=== PATIENT | female | born 1945 | race American Indian/Alaskan Native ===

== ENCOUNTER 2017-03-20 19:31 | Inpatient (IN) | payer MEDICARE ==
[2017-03-20] MEDS ORDERED: NACL 0.9% 500 ML 500 ML IV ONE (19:40)
[2017-03-20] MEDS ORDERED: TYLENOL PO STA (19:40)
[2017-03-20] MEDS ORDERED: TYLENOL ONE (19:42)
[2017-03-20 20:31] LABS: Basophils % (Auto) 0.2 % (0.0-1.8); Hematocrit 34.1 % (30.3-42.9); Hemoglobin 11.2 gm/dl (10.1-14.3); Mean Corpuscular HGB Conc 33 % (30-34); Mean Corpuscular Hemoglobin 29 pg (28-32); Mean Corpuscular Volume 87 fl (79-97); Platelet Count 146 K/mm3 (140-440); Red Blood Count 3.91 M/mm3 (3.65-5.03); Red Cell Distribution Width 16.1 % (13.2-15.2)
[2017-03-20 20:41] LABS: Albumin 1.7 g/dL (3.9-5); Albumin/Globulin Ratio 0.3 %; BUN/Creatinine Ratio 3.26; Bilirubin,Total 0.6 mg/dL (0.1-1.2); Calcium 8.7 mg/dL (8.4-10.2); Potassium 4.3 mmol/L (3.6-5.0); Total Protein 7.3 g/dL (6.3-8.2)
[2017-03-20 20:42] LABS: INR 0.98 (0.87-1.13)
--- NOTE | 2017-03-20 21:10 | Emergency Department Report ---
HPI - General Chief Complaint: Abdominal Pain Time Seen by Provider: 03/20/17 20:15 - HPI HPI: This is a 71-year-old Afro-[place]anese female presents to the emergency department from home with complaint of a 24-hour history of a sore and tight abdomen with generalized discomfort. She also complains of nausea and vomiting. This all started after the patient ate at [employer] in which she ate some chicken wings. Patient felt slightly feverish but did not check her temperature. She denies any chest pain, shortness of breath, diarrhea, dysuria, vaginal bleeding or discharge. She did not take anything for symptoms prior to presentation. Patient has a past medical history of CVA, hypertension and is nightly peritoneal dialysis. Her primary care physician is a Dr. Granado and her occup therapist is Dr. Hartley. No recent travel or sick contacts at home. ED Past Medical Hx - Past Medical History Previous Medical History?: Yes Hx Hypertension: Yes Hx CVA: Yes (2008) Hx Heart Attack/AMI: No Hx Liver Disease: No Hx Renal Disease: Yes (has PD catheter) Hx Sickle Cell Disease: No Hx Arthritis: Yes (bilat knees) Hx Seizures: No Hx Asthma: No Hx COPD: No - Surgical History Past Surgical History?: Yes Hx Pacemaker: No Hx Internal Defibrillator: No Hx Breast Surgery: Yes (NIPPLE SURGERY, R MASTECTOMY 2003) - Social History Smoking Status: Never Smoker Substance Use Type: None - Medications Home Medications: Home Medications Medication Instructions Recorded Confirmed Last Taken Type Losartan [Cozaar] 100 mg PO QDAY 10/17/13 03/20/17 03/20/17 History Carvedilol [Coreg] 12.5 mg PO BID 11/25/13 03/20/17 03/20/17 History Bisacodyl [Dulcolax] 5 mg PO QWEEK 03/20/17 03/20/17 03/20/17 History Cinacalcet [Sensipar] 30 mg PO QDAY 03/20/17 03/20/17 03/20/17 History Iron,Carbonyl [Feosol] 65 mg PO QDAY 03/20/17 03/20/17 03/20/17 History NIFEdipine [Nifedipine ER] 60 mg PO QDAY 03/20/17 03/20/17 03/20/17 History Potassium Chloride [Klor-Con] 20 meq PO QDAY 03/20/17 03/20/17 03/20/17 History Sevelamer Carbonate [Renvela] 800 mg PO TIDWM 03/20/17 03/20/17 03/20/17 History Simvastatin [Zocor TAB] 40 mg PO QHS 03/20/17 03/20/17 03/20/17 History Spironolactone [Aldactone] 25 mg PO BID 03/20/17 03/20/17 03/20/17 History Vit B Comp&C/Folic Acid/Vit D3 1 each PO QDAY 03/20/17 03/20/17 03/20/17 History [Dialyvite 800 Plus D Wafer] ED Review of Systems ROS: Stated complaint: ABD PAIN Other details as noted in HPI Comment: All other systems reviewed and negative Constitutional: fever. denies: chills Eyes: denies: eye pain, eye discharge, vision change ENT: denies: ear pain, throat pain Respiratory: denies: cough, shortness of breath, wheezing Cardiovascular: denies: chest pain, palpitations Gastrointestinal: abdominal pain, nausea, vomiting Genitourinary: denies: urgency, dysuria, discharge Musculoskeletal: denies: back pain, joint swelling, arthralgia Skin: denies: rash, lesions Neurological: denies: headache, weakness, paresthesias Physical Exam - Physical Exam Vital Signs: Vital Signs 03/20/17 03/20/17 03/20/17 19:20 19:30 19:33 Temperature 101.2 F H Pulse Rate 116 H 114 H 116 H Respiratory 24 21 16 Rate Blood Pressure 164/88 164/88 O2 Sat by Pulse 95 98 96 Oximetry 03/20/17 03/20/17 03/20/17 19:40 19:50 20:00 Temperature Pulse Rate 117 H 112 H 111 H Respiratory 22 19 28 H Rate Blood Pressure 150/81 O2 Sat by Pulse 97 99 98 Oximetry Physical Exam: GENERAL: The patient is well-developed well-nourished. HEENT: Normocephalic. Atraumatic. Extraocular motions are intact. Patient has moist mucous membranes. Pupils equal reactive to light bilaterally. NECK: Supple. Trachea is midline. CHEST/LUNGS: Clear to auscultation. There is no respiratory distress noted. HEART/CARDIOVASCULAR: Regular. There is no tachycardia. There is no gallop rub or murmur. ABDOMEN: Abdomen is soft. There is generalized tenderness to palpation of the abdomen. No guarding or rebound tenderness. Patient has normal bowel sounds. There is no abdominal distention. There is a peritoneal dialysis catheter palpable in the left lower quadrant. SKIN: Skin is warm and dry. NEURO: The patient is awake, alert. The patient is cooperative. The patient has no focal neurologic deficits. The patient has normal speech. MUSCULOSKELETAL: There is no tenderness or deformity. There is no limitation range of motion. There is no evidence of acute injury. ED Course Vital Signs 03/20/17 03/20/17 03/20/17 19:20 19:30 19:33 Temperature 101.2 F H Pulse Rate 116 H 114 H 116 H Respiratory 24 21 16 Rate Blood Pressure 164/88 164/88 O2 Sat by Pulse 95 98 96 Oximetry 03/20/17 03/20/17 03/20/17 19:40 19:50 20:00 Temperature Pulse Rate 117 H 112 H 111 H Respiratory 22 19 28 H Rate Blood Pressure 150/81 O2 Sat by Pulse 97 99 98 Oximetry - Consultations Consultation #1: I spoke with the general surgeon on-call who has agreed to see the patient has a consult. He does not feel that the pneumoperitoneum that is periportal is anything but iatrogenic from the peritoneal dialysis but will graciously see the patient on the floor. 03/20/17 23:52 Consultation #2: I spoke with Dr. Sykes, occup therapist, who will do peritoneal dialysis for the patient in the morning. He recommends sending off peritoneal fluid for a cell count and culture. 03/20/17 23:52 Consultation #3: I spoke with Dr. Rachid Oreilly, gastroenterology, who says that it is possible for SBP and a non-cirrhotic patient and if I have concern that he recommends Levaquin by mouth and this renally insufficient patient. 03/20/17 23:53 ED Medical Decision Making - Lab Data Result diagrams: 03/20/17 19:56 03/20/17 19:56 - EKG Data -: EKG Interpreted by Me EKG shows normal: sinus rhythm, axis (LAD), intervals, QRS complexes, ST-T waves Rate: tachycardia (116 bpm) - EKG Data When compared to previous EKG there are: previous EKG unavailable Interpretation: other (sinus tachycardia, left axis deviation, no ST elevation MN) - Radiology Data Radiology results: report reviewed CT of the abdomen and pelvis without contrast shows moderate volume of abdominal and pelvic ascites with pelvic peritoneal dialysis catheter in place. A small amount of perihepatic pneumoperitoneum is present which may be allergenic or secondary to nonvisualized hollow viscus rupture. Suggested bowel wall thickening involving the jejunum may be secondary to ascites or of primary gastrointestinal etiology such as enteritis. Small right pleural effusion. - Medical Decision Making 71-year-old female presents with a one-day history of nausea, vomiting and generalized abdominal pain. Labs are mostly unremarkable but the patient does present with fever and tachycardia. She has general tenderness to palpation of the abdomen. EKG shows a moderate amount of ascites and some periportal pneumoperitoneum that could be from her dialysis but cannot completely exclude hollow viscus injury/perforation. This reason the patient will be admitted to hospital for evaluation by general surgery, peritoneal dialysis through nephrology, and testing of the peritoneal fluid to rule out SBP. Patient accepted for admission by the hospitalist, Dr. Carmona. - Differential Diagnosis gastroenteritis, SBP, diverticulitis Critical Care Time: No Critical care attestation.: If time is entered above; I have spent that time in minutes in the direct care of this critically ill patient, excluding procedure time. ED Disposition Clinical Impression: ESRD (end stage renal disease), Generalized abdominal pain Anemia Qualifiers: Anemia type: unspecified type Qualified Code(s): D64.9 - Anemia, unspecified Fever Qualifiers: Fever type: unspecified Qualified Code(s): R50.9 - Fever, unspecified Disposition: 09 OP ADMIT IP TO THIS HOSP Is pt being admited?: Yes Condition: Stable Instructions: Abdominal Pain (ED) Referrals: PRIMARY CARE, [Primary Care Provider] - 3-5 Days Time of Disposition: 23:56
--- NOTE | 2017-03-20 22:41 | Cat Scan Report ---
FINAL REPORT EXAM: CT ABDOMEN PELVIS WO CON HISTORY: Abd pain; TECHNIQUE: CT images obtained through the Abdomen and Pelvis without contrast. Transaxial,coronal and sagittal reformats are provided. PRIORS: None. FINDINGS: Imaged intrathoracic contents are remarkable for right middle lobe and lingular cystic bronchiectasis. Suggested sequela COPD. Lower lung tree-in-bud nodularity. Cardiomegaly and coronary artery disease. Moderate volume of abdominal ascites. Perihepatic pneumoperitoneum. Peritoneal dialysis catheter is coiled within the pelvis. A pelvic floor device is present. Diminutive kidneys with multiple cysts as well as cortical irregularity/scarring and mild perinephric stranding and edema. No nephrolithiasis or hydroureteronephrosis. Decompressed urinary bladder without stone. Mild hepatic border nodularity. Cholelithiasis. Punctate old granulomas in the spleen, which is otherwise unremarkable. Thickening of the adrenal glands without focal nodularity. Pancreas demonstrates an unremarkable noncontrast appearance. Suggested wall thickening involving the jejunum best demonstrated on axial series 3, images 65-72. Fluid is seen throughout much of the colon. Normal appendix. Diverticulosis. Mild diffuse superficial soft tissue edema. No acute or aggressive appearing skeletal finding. Tortuous normal caliber aorta with densely scattered atherosclerotic calcification. IMPRESSION: Moderate volume of abdominal and pelvic ascites with pelvic peritoneal dialysis catheter in place. A small amount of perihepatic pneumoperitoneum is present, which may be iatrogenic or secondary to nonvisualized hollow viscus rupture. Consider surgical consultation as clinically warranted. Suggested bowel wall thickening involving the jejunum may be secondary to ascites or of primary gastrointestinal etiology such is enteritis. Small right pleural effusion. Cardiomegaly and coronary artery disease. Dr. Amin discussed findings with Dr. Whipple at [address] [employer] following the examination.
[2017-03-20 23:08] LABS: Bilirubin,Urine NEG (Negative); Blood,Urine LG (Negative); Ketones,Urine NEG (Negative); Leukocyte Esterase,Urine NEG (Negative); Mucus,Urine FEW /HPF; Nitrite,Urine NEG (Negative); Urobilinogen,Urine < 2.0 mg/dL (<2.0)
[2017-03-20 23:16] LABS: Protein,Urine >500 mg/dL (Negative); RBC,Urine > 182.0 /HPF (0.0-6.0)
[2017-03-20] MEDS ORDERED: LEVAQUIN PO ONE (23:19)
--- NOTE | 2017-03-20 23:52 | History and Physical Report ---
History of Present Illness Date of examination: 03/20/17 History of present illness: 71 year old woman with history of end-stage renal disease on peritoneal dialysis , Hypertension, History of CVA comes emergency room with complaints of diffuse abdominal soreness, fever. States she had an episode of nausea and vomiting yesterday. Admits to dysuria Review Of Systems: Constitutional: no chills, weight loss Ears, eyes, nose, mouth and throat: no nasal congestion, no nasal discharge, no sinus pressure, blurry vision, diplopia Neck: No neck pain or rigidity. Cardiovascular: chest pain, orthopnea, palpitations Respiratory: No shortness of breath, cough Gastrointestinal: abdominal pain, hematochezia Genitourinary : no frequency , hematuria Musculoskeletal: no joint swelling or muscle ache Integumentary: no rash, no pruritis Neurological: no parathesias, focal weakness Endocrine: no cold or heat intolerance, no polyuria or polydipsia Hematologic/Lymphatic: no easy bruising, no easy bleeding, no gland swelling Allergic/Immunologic: no urticaria, no angioedema. Past Medical History: end-stage renal disease, hypertension, CVA Past Surgical History: mastectomy,tubal ligation Social history: Denies alcohol, drug, tobacco use Family history:Hypertension Medications and Allergies Allergies Allergy/AdvReac Type Severity Reaction Status Date / Time Sulfa (Sulfonamide AdvReac Itching Verified 10/17/13 10:15 Antibiotics) Home Medications Medication Instructions Recorded Confirmed Last Taken Type Losartan [Cozaar] 100 mg PO QDAY 10/17/13 03/20/17 03/20/17 History Carvedilol [Coreg] 12.5 mg PO BID 11/25/13 03/20/17 03/20/17 History Bisacodyl [Dulcolax] 5 mg PO QWEEK 03/20/17 03/20/17 03/20/17 History Cinacalcet [Sensipar] 30 mg PO QDAY 03/20/17 03/20/17 03/20/17 History Iron,Carbonyl [Feosol] 65 mg PO QDAY 03/20/17 03/20/17 03/20/17 History NIFEdipine [Nifedipine ER] 60 mg PO QDAY 03/20/17 03/20/17 03/20/17 History Potassium Chloride [Klor-Con] 20 meq PO QDAY 0803/20/17 03/20/17 History Sevelamer Carbonate [Renvela] 800 mg PO TIDWM 03/20/17 03/20/17 03/20/17 History Simvastatin [Zocor TAB] 40 mg PO QHS 03/20/17 03/20/17 03/20/17 History Spironolactone [Aldactone] 25 mg PO BID 03/20/17 03/20/17 03/20/17 History Vit B Comp&C/Folic Acid/Vit D3 1 each PO QDAY 03/20/17 03/20/17 03/20/17 History [Dialyvite 800 Plus D Wafer] Exam - Physical Exam Narrative exam: Gen. appearance: Patient lying in bed, no apparent distress HEENT: Normocephalic, atraumatic, pupils equally round and reactive to light, extraocular movement intact, and no sclericterus,. No JVD or thyromegaly or nodule,neck supple, no carotid bruit ,mucous membranes moist, no exudate or erythema Heart: S1, S2, regular rate and rhythm Lungs: Clear to auscultation bilaterally, breathing comfortable Abdomen: Positive bowel sounds, tender all over, nondistended, no organomegaly Extremity: No edema, cyanosis, clubbing Skin: No rash, nodules, warm, dry Neuro: Oriented 3, cranial nerves II-12 intact, speech is fluent, motor and sensory intact - Constitutional Vitals: Temp Pulse Resp BP Pulse Ox 99.0 F 100 H 21 144/78 99 03/20/17 22:18 03/20/17 23:30 03/20/17 23:30 03/20/17 23:30 03/20/17 23:30 Results - Labs CBC & Chem 7: 03/22/17 03:47 03/22/17 03:47 Labs: Abnormal lab results 03/20/17 03/20/17 03/20/17 Range/Units 19:56 19:56 19:56 WBC 3.0 L (4.5-11.0) K/mm3 RDW 16.1 H (13.2-15.2) % Lymph % (Auto) 9.2 L (13.4-35.0) % Lymph # 0.3 L (1.2-5.4) K/mm3 Seg Neutrophils % 83.3 H (40.0-70.0) % VBG pH 7.450 H (7.320-7.420) Sodium 131 L (137-145) mmol/L Chloride 90.0 L (98-107) mmol/L BUN 31 H (7-17) mg/dL Creatinine 9.5 H (0.7-1.2) mg/dL Albumin 1.7 L (3.9-5) g/dL Urine WBC (Auto) (0.0-6.0) /HPF 03/20/17 Range/Units 22:08 WBC (4.5-11.0) K/mm3 RDW (13.2-15.2) % Lymph % (Auto) (13.4-35.0) % Lymph # (1.2-5.4) K/mm3 Seg Neutrophils % (40.0-70.0) % VBG pH (7.320-7.420) Sodium (137-145) mmol/L Chloride (98-107) mmol/L BUN (7-17) mg/dL Creatinine (0.7-1.2) mg/dL Albumin (3.9-5) g/dL Urine WBC (Auto) 181.0 H (0.0-6.0) /HPF - Imaging and Cardiology Chest x-ray: image reviewed CT scan - abdomen: report reviewed CT scan - pelvis: report reviewed Assessment and Plan Assessment Spontaneous bacterial peritonitis Perihepatic Pneumoperitoneum most likely iatrogenic, PD catheter End-stage renal disease on peritoneal dialysis Hypertension History of CVA Plan Admits medicine Start IV Rocephin, consult renal, surgery Continue appropriate outpatient medications, start DVT prophylaxis
[2017-03-21] MEDS ORDERED: DULCOLAX PR PRN (00:07)
[2017-03-21] MEDS ORDERED: ZOFRAN IV PRN (00:07)
[2017-03-21] MEDS ORDERED: PERCOCET 5/325 PO PRN (00:07)
--- NOTE | 2017-03-21 09:13 | XRay Report ---
AP CHEST :03/20/17 19:31:00 CLINICAL: Sepsis. COMPARISON:None. FINDINGS: Cardiomegaly and redistribution of pulmonary blood flow to the upper lobes. No airspace disease or pleural effusion. Status post right mastectomy and right axillary node dissection. Surgical clips in the right axilla. Arthritis of the right shoulder. IMPRESSION: No pneumonia. Cardiomegaly and pulmonary venous hypertension but no pulmonary edema.
[2017-03-21] MEDS: ROCEPHIN/NS 1 GM/50 ML 1 GM/50 ML BAG IV SCH (09:37)
[2017-03-21] MEDS ORDERED: LOVENOX SUB-Q SCH (10:00)
--- NOTE | 2017-03-21 11:19 | Progress Note ---
Assessment and Plan Assessment and plan: Patient is 71-year-old woman with a history of end-stage renal disease on peritoneal dialysis, hypertension, osteoarthritis and CVA who presents with abdominal pain fever nausea vomiting. Symptoms have improved. CT abdomen and pelvis without contrast reported as moderate volume of abdominal pelvic ascites with pelvic peritoneal dialysis catheter in place, small amount of perihepatic pneumoperitoneum is present, which may be neurogenic or secondary to nonvisualized hollow viscus rupture, consider surgical consultation, suggested ball while taking Xarelto involving the jejunum may be secondary to ascites or primary GI pathology such as enteritis, small right pleural effusion, cardiomegaly cardiac artery disease, Dr. Amin discussed findings with Dr. Whipple. -Sepsis due to suspected bacterial peritonitis: IV antibiotics, cultures, peritoneal fluid has been sent but patient already on antibiotics, Tylenol -End Stage renal disease on peritoneal dialysis: Consulted nephrology -Urinary tract infection versus contaminated urine -Severe protein calorie malnutrition -Pneumoperitoneum: Consult general surgery, abdominal exam is benign may be related to peritoneal catheter. -DVT prophylaxis: Subcutaneous heparin, normal to low platelet counts continue to follow repeat CBC a.m. Full code Disposition: Continue inpatient care History Interval history: Patient seen and examined. Follow up on current diagnosis/abdominal pain and swelling which have improved. Overnight uneventful. No cp, sob, n/v or severe headaches. Imaging, old records, testing, labs, nursing notes reviewed. Daughter Darline is at bedside Hospitalist Physical - Physical exam Narrative exam: GEN: Thin frail BMI 19, NAD, AWAKE, ALERT, ORIENTATED x 3 HEENT: NCAT, PERRL, EOMI, OP CLEAR NECK: SUPPLE, NO THYROMEGALY, NO JVD, NO LAD CVS: RRR, NORMAL S1S2 LUNGS/CHEST: CTA B, NORMAL CHEST EXPANSION B, GOOD AIR ENTRY B ABD: SOFT, nontender GBS, NO REBOUND OR GUARDING, left quadrant peritoneal catheter EXT/SKIN: NO SIGNIFICANT EDEMA OR RASH MSK: FROM X 4 EXTREMITIES NEURO: CN 2-12 GROSSLY INTACT, NO NEW FOCAL DEFICITS PSY: CALM - Constitutional Vitals: Temp Pulse Resp BP Pulse Ox 99.4 F 100 H 20 149/85 95 03/21/17 09:20 03/21/17 09:20 03/21/17 09:20 03/21/17 09:20 03/21/17 07:16 Results - Labs CBC & Chem 7: 03/20/17 19:56 03/20/17 19:56 Labs: Laboratory Last Values WBC 3.0 K/mm3 (4.5-11.0) L 03/20/17 19:56 RBC 3.91 M/mm3 (3.65-5.03) 03/20/17 19:56 Hgb 11.2 gm/dl (10.1-14.3) 03/20/17 19:56 Hct 34.1 % (30.3-42.9) 03/20/17 19:56 MCV 87 fl (79-97) 03/20/17 19:56 MCH 29 pg (28-32) 03/20/17 19:56 MCHC 33 % (30-34) 03/20/17 19:56 RDW 16.1 % (13.2-15.2) H 03/20/17 19:56 Plt Count 146 K/mm3 (140-440) 03/20/17 19:56 Lymph % (Auto) 9.2 % (13.4-35.0) L 03/20/17 19:56 [place] % (Auto) 7.3 % (0.0-7.3) 03/20/17 19:56 Eos % (Auto) 0.0 % (0.0-4.3) 03/20/17 19:56 Baso % (Auto) 0.2 % (0.0-1.8) 03/20/17 19:56 Lymph # 0.3 K/mm3 (1.2-5.4) L 03/20/17 19:56 [place] # 0.2 K/mm3 (0.0-0.8) 03/20/17 19:56 Eos # 0.0 K/mm3 (0.0-0.4) 03/20/17 19:56 Baso # 0.0 K/mm3 (0.0-0.1) 03/20/17 19:56 Seg Neutrophils % 83.3 % (40.0-70.0) H 03/20/17 19:56 Seg Neutrophils # 2.5 K/mm3 (1.8-7.7) 03/20/17 19:56 PT 13.5 Sec. (12.2-14.9) 03/20/17 19:56 INR 0.98 (0.87-1.13) 03/20/17 19:56 VBG pH 7.450 (7.320-7.420) H 03/20/17 19:56 Sodium 131 mmol/L (137-145) L 03/20/17 19:56 Potassium 4.3 mmol/L (3.6-5.0) 03/20/17 19:56 Chloride 90.0 mmol/L (98-107) L 03/20/17 19:56 Carbon Dioxide 29 mmol/L (22-30) 03/20/17 19:56 Anion Gap 16 mmol/L 03/20/17 19:56 BUN 31 mg/dL (7-17) H 03/20/17 19:56 Creatinine 9.5 mg/dL (0.7-1.2) H 03/20/17 19:56 Estimated GFR 5 ml/min 03/20/17 19:56 BUN/Creatinine Ratio 3.26 % 03/20/17 19:56 Glucose 96 mg/dL (65-100) 03/20/17 19:56 Lactic Acid 1.60 mmol/L (0.7-2.0) 03/20/17 22:43 Calcium 8.7 mg/dL (8.4-10.2) 03/20/17 19:56 Total Bilirubin 0.60 mg/dL (0.1-1.2) 03/20/17 19:56 AST 31 units/L (5-40) 03/20/17 19:56 ALT 27 units/L (7-56) 03/20/17 19:56 Alkaline Phosphatase 65 units/L (35-129) 03/20/17 19:56 Total Protein 7.3 g/dL (6.3-8.2) 03/20/17 19:56 Albumin 1.7 g/dL (3.9-5) L 03/20/17 19:56 Albumin/Globulin Ratio 0.3 % 03/20/17 19:56 Lipase 28 units/L (13-60) 03/20/17 19:56 Urine Color Melissa (Yellow) 03/20/17 22:08 Urine Turbidity Slightly-cloudy (Clear) 03/20/17 22:08 Urine pH 7.0 (5.0-7.0) 03/20/17 22:08 Ur Specific [place] 1.025 (1.003-1.030) 03/20/17 22:08 Urine Protein >500 mg/dL (Negative) 03/20/17 22:08 Urine Glucose (UA) Neg mg/dL (Negative) 03/20/17 22:08 Urine Ketones Neg mg/dL (Negative) 03/20/17 22:08 Urine Blood Lg (Negative) 03/20/17 22:08 Urine Nitrite Neg (Negative) 03/20/17 22:08 Urine Bilirubin Neg (Negative) 03/20/17 22:08 Urine Urobilinogen < 2.0 mg/dL (<2.0) 03/20/17 22:08 Ur Leukocyte Esterase Neg (Negative) 03/20/17 22:08 Urine WBC (Auto) 181.0 /HPF (0.0-6.0) H 03/20/17 22:08 Urine RBC (Auto) > 182.0 /HPF (0.0-6.0) 03/20/17 22:08 U Epithel Cells (Auto) 3.0 /HPF (0-13.0) 03/20/17 22:08 Urine Mucus Few /HPF 03/20/17 22:08
--- NOTE | 2017-03-21 13:23 | Consultation ---
History of Present Illness - Reason for Consult Consult date: 03/21/17 end stage renal disease Requesting physician: CAROL ANN ROMEO - History of Present Illness 71 year old woman with history of end-stage renal disease on peritoneal dialysis , Hypertension, History of CVA comes emergency room with complaints of diffuse abdominal soreness, fever. States she had an episode of nausea and vomiting yesterday. Admits to dysuria. States that her PD fluid has been clear. She has had some diarrhea as well. Past History Past Medical History: ESRD, hypertension Past Surgical History: Other (history of PD catheter placement) Social history: no significant social history Family history: no significant family history Medications and Allergies Allergies Allergy/AdvReac Type Severity Reaction Status Date / Time Sulfa (Sulfonamide AdvReac Itching Verified 10/17/13 10:15 Antibiotics) Home Medications Medication Instructions Recorded Confirmed Last Taken Type Losartan [Cozaar] 100 mg PO QDAY 10/17/13 03/20/17 03/20/17 History Carvedilol [Coreg] 12.5 mg PO BID 11/25/13 03/20/17 03/20/17 History Bisacodyl [Dulcolax] 5 mg PO QWEEK 03/20/17 03/20/17 03/20/17 History Cinacalcet [Sensipar] 30 mg PO QDAY 03/20/17 03/20/17 03/20/17 History Iron,Carbonyl [Feosol] 65 mg PO QDAY 03/20/17 03/20/17 03/20/17 History NIFEdipine [Nifedipine ER] 60 mg PO QDAY 03/20/17 03/20/17 03/20/17 History Potassium Chloride [Klor-Con] 20 meq PO QDAY 03/20/17 03/20/17 03/20/17 History Sevelamer Carbonate [Renvela] 800 mg PO TIDWM 03/20/17 03/20/17 03/20/17 History Simvastatin [Zocor TAB] 40 mg PO QHS 03/20/17 03/20/17 03/20/17 History Spironolactone [Aldactone] 25 mg PO BID 03/20/17 03/20/17 03/20/17 History Vit B Comp&C/Folic Acid/Vit D3 1 each PO QDAY 03/20/17 03/20/17 03/20/17 History [Dialyvite 800 Plus D Wafer] Active Meds: Active Medications Acetaminophen (Tylenol) 650 mg PO Q4H PRN PRN Reason: Pain MILD(1-3)/Fever >100.5/AGUILAR Bisacodyl (Dulcolax) 10 mg MT QDAY PRN PRN Reason: Constipation unrelieved by MOM Heparin Sodium (Porcine) (Heparin) 5,000 unit SUB-Q Q12H HERNANDEZ Ceftriaxone Sodium (Rocephin/Ns 1 Gm/50 Ml) 1 gm in 50 mls @ 100 mls/hr IV Q24HR HERNANDEZ PRN Reason: Protocol Last Admin: 03/21/17 09:37 Dose: 100 mls/hr Ondansetron HCl (Zofran) 4 mg IV Q8H PRN PRN Reason: N/V unrelieved by Reglan Oxycodone/Acetaminophen (Percocet 5/325) 1 tab PO Q6H PRN PRN Reason: Pain, Moderate (4-6) Last Admin: 03/21/17 02:10 Dose: 1 tab Peritoneal Dialysis Solution (Dianeal Low Calcium W/1.5% Dextrose) 2,000 ml IP Q6HR [facility] Review of Systems All systems: negative (except as noted above) Exam - Vital Signs Vital signs: Vital Signs Pulse Resp Pulse Ox 116 H 24 95 03/20/17 19:20 03/20/17 19:20 03/20/17 19:20 - General Appearance General appearance: well-developed, well-nourished, appears stated age EENT: PERRL, mucous membranes moist Neck: Present: neck supple, trachea midline. Absent: JVD/HJR, Masses Respiratory: Clear to Ascultation Heart: regular, normal heart rate, S1S2, no murmurs Gastrointestinal: Present: normal, tenderness (mild diffuse tenderness), guarding (no rebound or guarding), other (PD catheter in left lower quadrant area) Integumentary: no rash, other (no peripheral edema) Results - Lab Results 03/20/17 19:56 03/20/17 19:56 Most recent lab results Calcium 8.7 mg/dL (8.4-10.2) 03/20/17 19:56 Assessment and Plan Impression * End-stage renal disease on maintenance peritoneal dialysis * Abdominal pain. Rule out peritonitis * Hypertension * Anemia secondary to ESRD * History of CVA * UTI Recommendations * Agree with empiric intravenous antibiotics * Shall check a PD fluid for cell count and culture * Free intraperitoneal air most likely secondary to her PD. I do not suspect a surgical abdomen * Shall resume her peritoneal dialysis * Adjust diet and meds for ESRD state * Avoid nephrotoxins * Thank you very much for the consultation. Shall follow along with you
[2017-03-21] MEDS: DIANEAL LOW CALCIUM W/1.5% DEXTROSE IP SCH ×3 (13:37→23:46)
[2017-03-21] MEDS: TYLENOL PO PRN (15:07)
[2017-03-22] MEDS: TYLENOL PO PRN (00:46)
[2017-03-22 04:41] LABS: BUN/Creatinine Ratio 4.5; Calcium 8.5 mg/dL (8.4-10.2); Chloride 87.3 mmol/L (98-107); Potassium 4.5 mmol/L (3.6-5.0)
[2017-03-22 04:52] LABS: Hematocrit 33.7 % (30.3-42.9); Hemoglobin 11.2 gm/dl (10.1-14.3); Mean Corpuscular HGB Conc 33 % (30-34); Mean Corpuscular Hemoglobin 29 pg (28-32); Mean Corpuscular Volume 87 fl (79-97); Platelet Count 172 K/mm3 (140-440); Red Blood Count 3.87 M/mm3 (3.65-5.03); Red Cell Distribution Width 16.3 % (13.2-15.2); White Blood Count 5.1 K/mm3 (4.5-11.0)
[2017-03-22 05:42] LABS: Anisocytosis 1+; Basophils % (Manual) 0 % (0.0-1.8); Blastocytes % (Manual) 0 %; Diff Status Complete; Eosinophils % (Manual) 0 % (0.0-4.3); Hypochromasia 1+; Platelet Estimate Consistent w Auto
[2017-03-22] MEDS: DIANEAL LOW CALCIUM W/1.5% DEXTROSE IP SCH ×3 (06:00→18:43)
--- NOTE | 2017-03-22 09:32 | Progress Note ---
Assessment and Plan Assessment and plan: Patient is 71-year-old woman with a history of end-stage renal disease on peritoneal dialysis, hypertension, osteoarthritis and CVA who presents with abdominal pain fever nausea vomiting. Symptoms have improved. CT abdomen and pelvis without contrast reported as moderate volume of abdominal pelvic ascites with pelvic peritoneal dialysis catheter in place, small amount of perihepatic pneumoperitoneum is present, which may be neurogenic or secondary to nonvisualized hollow viscus rupture, consider surgical consultation, suggested ball while taking Xarelto involving the jejunum may be secondary to ascites or primary GI pathology such as enteritis, small right pleural effusion, cardiomegaly cardiac artery disease, Dr. Amin discussed findings with Dr. Whipple. 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 Sykes, -DVT prophylaxis: Subcutaneous heparin, normal to low platelet counts continue to follow repeat CBC a.m. -Hyponatremia due to renal disease: nephrology to manage Full code Disposition: Continue inpatient care Pending results: Abd u/s Peritoneal fluid culture History Interval history: Patient seen and examined. Follow up on current diagnosis/abdominal pain and swelling which have improved but still present. Overnight uneventful. No cp, sob , n/v or severe headaches. Imaging, old records, testing, labs, nursing notes reviewed. Daughter Darline is not at bedside today Hospitalist Physical - Physical exam Narrative exam: GEN: Thin frail BMI 19, NAD, AWAKE, ALERT, ORIENTATED x 3 HEENT: NCAT, PERRL, EOMI, OP CLEAR NECK: SUPPLE, NO THYROMEGALY, NO JVD, NO LAD CVS: RRR, NORMAL S1S2 LUNGS/CHEST: CTA B, NORMAL CHEST EXPANSION B, GOOD AIR ENTRY B ABD: SOFT, tender diffusely, GBS, NO REBOUND OR GUARDING, left quadrant peritoneal catheter EXT/SKIN: NO SIGNIFICANT EDEMA OR RASH MSK: FROM X 4 EXTREMITIES NEURO: CN 2-12 GROSSLY INTACT, NO NEW FOCAL DEFICITS PSY: CALM - Constitutional Vitals: Temp Pulse Resp BP Pulse Ox 98.6 F 95 H 20 129/78 95 03/21/17 21:47 03/21/17 22:15 03/22/17 01:46 03/21/17 21:47 03/21/17 22:15 Results - Labs CBC & Chem 7: 03/22/17 03:47 03/22/17 03:47 Labs: Laboratory Last Values WBC 5.1 K/mm3 (4.5-11.0) 03/22/17 03:47 RBC 3.87 M/mm3 (3.65-5.03) 03/22/17 03:47 Hgb 11.2 gm/dl (10.1-14.3) 03/22/17 03:47 Hct 33.7 % (30.3-42.9) 03/22/17 03:47 MCV 87 fl (79-97) 03/22/17 03:47 MCH 29 pg (28-32) 03/22/17 03:47 MCHC 33 % (30-34) 03/22/17 03:47 RDW 16.3 % (13.2-15.2) H 03/22/17 03:47 Plt Count 172 K/mm3 (140-440) 03/22/17 03:47 Lymph % (Auto) 9.2 % (13.4-35.0) L 03/20/17 19:56 [place] % (Auto) 7.3 % (0.0-7.3) 03/20/17 19:56 Eos % (Auto) 0.0 % (0.0-4.3) 03/20/17 19:56 Baso % (Auto) 0.2 % (0.0-1.8) 03/20/17 19:56 Lymph # 0.3 K/mm3 (1.2-5.4) L 03/20/17 19:56 [place] # 0.2 K/mm3 (0.0-0.8) 03/20/17 19:56 Eos # 0.0 K/mm3 (0.0-0.4) 03/20/17 19:56 Baso # 0.0 K/mm3 (0.0-0.1) 03/20/17 19:56 Add Manual Diff Complete 03/22/17 03:47 Total Counted 100 03/22/17 03:47 Seg Neutrophils % 83.3 % (40.0-70.0) H 03/20/17 19:56 Seg Neuts % (Manual) 63.0 % (40.0-70.0) 03/22/17 03:47 Band Neutrophils % 22.0 % 03/22/17 03:47 Lymphocytes % (Manual) 9.0 % (13.4-35.0) L 03/22/17 03:47 Reactive Lymphs % (Man) 0 % 03/22/17 03:47 Monocytes % (Manual) 6.0 % (0.0-7.3) 03/22/17 03:47 Eosinophils % (Manual) 0 % (0.0-4.3) 03/22/17 03:47 Basophils % (Manual) 0 % (0.0-1.8) 03/22/17 03:47 Metamyelocytes % 0 % 03/22/17 03:47 Myelocytes % 0 % 03/22/17 03:47 Promyelocytes % 0 % 03/22/17 03:47 Blast Cells % 0 % 03/22/17 03:47 Nucleated RBC % Not Reportable 03/22/17 03:47 Seg Neutrophils # 2.5 K/mm3 (1.8-7.7) 03/20/17 19:56 Seg Neutrophils # Man 3.2 K/mm3 (1.8-7.7) 03/22/17 03:47 Band Neutrophils # 1.1 K/mm3 03/22/17 03:47 Lymphocytes # (Manual) 0.5 K/mm3 (1.2-5.4) L 03/22/17 03:47 Abs React Lymphs (Man) 0.0 K/mm3 03/22/17 03:47 Monocytes # (Manual) 0.3 K/mm3 (0.0-0.8) 03/22/17 03:47 Eosinophils # (Manual) 0.0 K/mm3 (0.0-0.4) 03/22/17 03:47 Basophils # (Manual) 0.0 K/mm3 (0.0-0.1) 03/22/17 03:47 Metamyelocytes # 0.0 K/mm3 03/22/17 03:47 Myelocytes # 0.0 K/mm3 03/22/17 03:47 Promyelocytes # 0.0 K/mm3 03/22/17 03:47 Blast Cells # 0.0 K/mm3 03/22/17 03:47 WBC Morphology Not Reportable 03/22/17 03:47 Hypersegmented Neuts Not Reportable 03/22/17 03:47 Hyposegmented Neuts Not Reportable 03/22/17 03:47 Hypogranular Neuts Not Reportable 03/22/17 03:47 Smudge Cells Not Reportable 03/22/17 03:47 Toxic Granulation Not Reportable 03/22/17 03:47 Toxic Vacuolation Not Reportable 03/22/17 03:47 Dohle Bodies Not Reportable 03/22/17 03:47 Pelger-Huet Anomaly Not Reportable 03/22/17 03:47 Ry Rods Not Reportable 03/22/17 03:47 Platelet Estimate Consistent w auto 03/22/17 03:47 Clumped Platelets Not Reportable 03/22/17 03:47 Plt Clumps, EDTA Not Reportable 03/22/17 03:47 Large Platelets Not Reportable 03/22/17 03:47 Giant Platelets Not Reportable 03/22/17 03:47 Platelet Satelliting Not Reportable 03/22/17 03:47 Plt Morphology Comment Not Reportable 03/22/17 03:47 RBC Morphology Not Reportable 03/22/17 03:47 Dimorphic RBCs Not Reportable 03/22/17 03:47 Polychromasia Not Reportable 03/22/17 03:47 Hypochromasia 1+ 03/22/17 03:47 Poikilocytosis Not Reportable 03/22/17 03:47 Anisocytosis 1+ 03/22/17 03:47 Microcytosis Not Reportable 03/22/17 03:47 Macrocytosis Not Reportable 03/22/17 03:47 Spherocytes Not Reportable 03/22/17 03:47 Pappenheimer Bodies Not Reportable 03/22/17 03:47 Sickle Cells Not Reportable 03/22/17 03:47 Target Cells Not Reportable 03/22/17 03:47 Tear Drop Cells Not Reportable 03/22/17 03:47 Ovalocytes Not Reportable 03/22/17 03:47 Helmet Cells Not Reportable 03/22/17 03:47 N[place] Bodies Not Reportable 03/22/17 03:47 [place] Rings Not Reportable 03/22/17 03:47 [place] Cells Not Reportable 03/22/17 03:47 Bite Cells Not Reportable 03/22/17 03:47 Crenated Cell Not Reportable 03/22/17 03:47 Elliptocytes Not Reportable 03/22/17 03:47 Acanthocytes (Spur) Not Reportable 03/22/17 03:47 Rouleaux Not Reportable 03/22/17 03:47 Hemoglobin C Crystals Not Reportable 03/22/17 03:47 Schistocytes Not Reportable 03/22/17 03:47 Malaria parasites Not Reportable 03/22/17 03:47 Saud Bodies Not Reportable 03/22/17 03:47 Hem Pathologist Commnt No 03/22/17 03:47 PT 13.5 Sec. (12.2-14.9) 03/20/17 19:56 INR 0.98 (0.87-1.13) 03/20/17 19:56 VBG pH 7.450 (7.320-7.420) H 03/20/17 19:56 Sodium 128 mmol/L (137-145) L 03/22/17 03:47 Potassium 4.5 mmol/L (3.6-5.0) 03/22/17 03:47 Chloride 87.3 mmol/L (98-107) L 03/22/17 03:47 Carbon Dioxide 27 mmol/L (22-30) 03/22/17 03:47 Anion Gap 18 mmol/L 03/22/17 03:47 BUN 41 mg/dL (7-17) H 03/22/17 03:47 Creatinine 9.1 mg/dL (0.7-1.2) H 03/22/17 03:47 Estimated GFR 5 ml/min 03/22/17 03:47 BUN/Creatinine Ratio 4.50 % 03/22/17 03:47 Glucose 99 mg/dL (65-100) 03/22/17 03:47 Lactic Acid 1.60 mmol/L (0.7-2.0) 03/20/17 22:43 Calcium 8.5 mg/dL (8.4-10.2) 03/22/17 03:47 Total Bilirubin 0.60 mg/dL (0.1-1.2) 03/20/17 19:56 AST 31 units/L (5-40) 03/20/17 19:56 ALT 27 units/L (7-56) 03/20/17 19:56 Alkaline Phosphatase 65 units/L (35-129) 03/20/17 19:56 Total Protein 7.3 g/dL (6.3-8.2) 03/20/17 19:56 Albumin 1.7 g/dL (3.9-5) L 03/20/17 19:56 Albumin/Globulin Ratio 0.3 % 03/20/17 19:56 Lipase 28 units/L (13-60) 03/20/17 19:56 Urine Color Melissa (Yellow) 03/20/17 22:08 Urine Turbidity Slightly-cloudy (Clear) 03/20/17 22:08 Urine pH 7.0 (5.0-7.0) 03/20/17 22:08 Ur Specific [place] 1.025 (1.003-1.030) 03/20/17 22:08 Urine Protein >500 mg/dL (Negative) 03/20/17 22:08 Urine Glucose (UA) Neg mg/dL (Negative) 03/20/17 22:08 Urine Ketones Neg mg/dL (Negative) 03/20/17 22:08 Urine Blood Lg (Negative) 03/20/17 22:08 Urine Nitrite Neg (Negative) 03/20/17 22:08 Urine Bilirubin Neg (Negative) 03/20/17 22:08 Urine Urobilinogen < 2.0 mg/dL (<2.0) 03/20/17 22:08 Ur Leukocyte Esterase Neg (Negative) 03/20/17 22:08 Urine WBC (Auto) 181.0 /HPF (0.0-6.0) H 03/20/17 22:08 Urine RBC (Auto) > 182.0 /HPF (0.0-6.0) 03/20/17 22:08 U Epithel Cells (Auto) 3.0 /HPF (0-13.0) 03/20/17 22:08 Urine Mucus Few /HPF 03/20/17 22:08
[2017-03-22] MEDS: ROCEPHIN/NS 1 GM/50 ML 1 GM/50 ML BAG IV SCH (10:14)
[2017-03-22] MEDS: HEPARIN SUB-Q SCH (11:58)
--- NOTE | 2017-03-22 13:02 | Ultrasound Report ---
ABDOMINAL ULTRASOUND: 03/20/17 23:51:00 CLINICAL: Abdominal pain. On peritoneal dialysis. FINDINGS: High-resolution ultrasound demonstrated a small liver with a mild heterogeneous echo pattern. No liver mass. Normal hepatic vasculature and inferior vena cava. The gallbladder is distended with a relatively thick wall measuring 4.2 mm. Several tiny hyperechoic foci in the gallbladder wall with comet tail artifact. No cholelithiasis. Normal bile ducts. The common bile duct measures 6.2 mm diameter. The pancreatic head and proximal body are normal but the tail obscured by bowel gas. Normal abdominal aorta. A normal spleen measures 9.2cm. Marked increased echogenicity of the kidneys and poorly defined renal margins. No hydronephrosis. The right kidney measures 9.2 x 3.7 x 5.8 cm and the left kidney measures 8.8 x 4.6 x 3.7 cm. IMPRESSION: 1. Adenomyomatosis of the gallbladder. 2. No cholelithiasis. 3. Bilateral medical renal disease and no hydronephrosis. 4. A small liver with questionable cirrhosis.
--- NOTE | 2017-03-22 13:12 | Progress Note ---
Assessment and Plan Impression * End-stage renal disease on maintenance peritoneal dialysis * peritonitis * Hypertension * Anemia secondary to ESRD * History of CVA * UTI * Hyponatremia Recommendations * PD fluid cell count is 22,000. Patient is currently on Rocephin. Shall add vancomycin to the regimen pending culture results * Free intraperitoneal air most likely secondary to her PD. I do not suspect a surgical abdomen * Shall resume her peritoneal dialysis * Adjust diet and meds for ESRD state * Avoid nephrotoxins * Patient needs fluid restriction Subjective Date of service: 03/22/17 Interval history: Patient still having some abdominal pain but slightly better. Denies any nausea or vomiting. PD fluid is hazy Objective - Vital Signs Vital signs: Vital Signs - 12hr 03/22/17 03/22/17 01:46 09:28 Temperature 98.2 F Pulse Rate 94 H Respiratory 20 20 Rate Blood Pressure 159/88 - General Appearance General appearance: well-developed, well-nourished, appears stated age EENT: PERRL, mucous membranes moist Neck: no JVD, no thyromegaly, no carotid bruit, supple Respiratory: Present: Clear to Ascultation Cardiology: regular, normal heart rate Gastrointestinal: normoactive bowel sounds, tenderness (mild diffuse tenderness. No rebound or guarding), other (PD catheter in place) Integumentary: no rash, other (no edema) - Lab 03/22/17 03:47 03/22/17 03:47 Most recent lab results Calcium 8.5 mg/dL (8.4-10.2) 03/22/17 03:47
[2017-03-22] MEDS ORDERED: VANCOMYCIN/NS 1 GM/250 ML 1 GM/250 ML BAG IV ONE (14:12)
--- NOTE | 2017-03-22 18:48 | Progress Note ---
Subjective Patient Reports: Positive: feels better, still having pain, pain is less, tolerating liquids well, flatus, bowel movement Narrative: feels improving , pain is less on soft diet talked to family needs more observation . will check BMP in AM + cbc Objective Vital Signs - 12hr 03/22/17 09:28 Temperature 98.2 F Pulse Rate 94 H Respiratory 20 Rate Blood Pressure 159/88 - Labs 03/22/17 03:47 03/22/17 03:47 Diabetes panel 03/22/17 Range/Units 03:47 Sodium 128 L (137-145) mmol/L Potassium 4.5 (3.6-5.0) mmol/L Chloride 87.3 L (98-107) mmol/L Carbon Dioxide 27 (22-30) mmol/L BUN 41 H (7-17) mg/dL Creatinine 9.1 H (0.7-1.2) mg/dL Glucose 99 (65-100) mg/dL Calcium 8.5 (8.4-10.2) mg/dL Calcium panel 03/22/17 Range/Units 03:47 Calcium 8.5 (8.4-10.2) mg/dL Pituitary panel 03/22/17 Range/Units 03:47 Sodium 128 L (137-145) mmol/L Potassium 4.5 (3.6-5.0) mmol/L Chloride 87.3 L (98-107) mmol/L Carbon Dioxide 27 (22-30) mmol/L BUN 41 H (7-17) mg/dL Creatinine 9.1 H (0.7-1.2) mg/dL Glucose 99 (65-100) mg/dL Calcium 8.5 (8.4-10.2) mg/dL Adrenal panel 03/22/17 Range/Units 03:47 Sodium 128 L (137-145) mmol/L Potassium 4.5 (3.6-5.0) mmol/L Chloride 87.3 L (98-107) mmol/L Carbon Dioxide 27 (22-30) mmol/L BUN 41 H (7-17) mg/dL Creatinine 9.1 H (0.7-1.2) mg/dL Glucose 99 (65-100) mg/dL Calcium 8.5 (8.4-10.2) mg/dL
[2017-03-23] MEDS: DIANEAL LOW CALCIUM W/1.5% DEXTROSE IP SCH ×4 (00:08→17:40)
[2017-03-23] MEDS: HEPARIN SUB-Q SCH ×2 (00:21→13:01)
--- NOTE | 2017-03-23 07:43 | Consultation ---
HISTORY OF PRESENT ILLNESS: This patient is a 71-year-old black female. She is a known case of failure. She is on peritoneal dialysis. She is doing that at home twice a week she told me. She gives a history of total abdominal hysterectomy that did not work. 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 She came here because of pain to the mid upper abdomen with nausea and vomiting. She had the same about 2 months ago. With the above-mentioned findings, the patient was thus seen by our ER physician. The CAT scan without contrast showed nonspecific findings, did show some dilated small bowel loops and there is some fluid within the pelvic area. There is questionable pneumoperitoneum above the liver on the right side and this is possible from the peritoneal catheters presumably. She has never been in the hospital for any reason in the past other than the above. The patient had 2 children. She has no diabetes. She does not drink nor does she smoke. She lives by herself at home. PHYSICAL EXAMINATION: GENERAL: Showed a thin, slim, short-statured black female. She looks awake and responsive. She told me that the pain is much better now. HEENT: Essentially negative. NECK: Supple. LUNGS: Essentially clear. ABDOMEN: Moderately protuberant and soft. It is benign and nontender. She had a catheter in the left quadrant upper abdomen. EXTREMITIES: Showed no evidence of edema. IMPRESSION AND PLAN: Abdominal pain probable etiology of which is unknown, most probably from the uremia that she has. I believe this may represent uremic peritonitis that is resolving. We need to rule out gallbladder disease because the pain sometimes is localized in the right upper quadrant. Surgically speaking nothing needs to be done at the present time. JOB# [id number] HILDA/MERLINE
[2017-03-23 09:10] LABS: Albumin 1.2 g/dL (3.9-5); Albumin/Globulin Ratio 0.2 %; BUN/Creatinine Ratio 3.91; Bilirubin,Total 0.2 mg/dL (0.1-1.2); Calcium 8.2 mg/dL (8.4-10.2); Potassium 3.8 mmol/L (3.6-5.0); Total Protein 6.3 g/dL (6.3-8.2)
[2017-03-23] MEDS: ROCEPHIN/NS 1 GM/50 ML 1 GM/50 ML BAG IV SCH (09:20)
--- NOTE | 2017-03-23 10:39 | Progress Note ---
Assessment and Plan Impression * End-stage renal disease on maintenance peritoneal dialysis * Catheter associated peritonitis * GNR bacteremia * Hypertension * Anemia secondary to ESRD * History of CVA * UTI Recommendations * Continue abx - Vanco; change Rocephin to Cefepime * Free intraperitoneal air most likely secondary to her PD * Repeat cell count * Await PD effluent culture * Recommend ID consultation * Adjust diet and meds for ESRD state * Avoid nephrotoxins Subjective Date of service: 03/23/17 Interval history: Patient reports abdominal pain improved. Objective - Vital Signs Vital signs: Vital Signs - 12hr 03/23/17 03/23/17 03/23/17 00:05 04:21 04:32 Temperature 99.4 F Pulse Rate 98 H 94 H 100 H Respiratory 19 20 Rate Blood Pressure 154/91 173/98 O2 Sat by Pulse 97 Oximetry 03/23/17 03/23/17 06:06 10:00 Temperature 99.1 F 99.4 F Pulse Rate 94 H 89 Respiratory 20 18 Rate Blood Pressure 166/91 162/94 O2 Sat by Pulse 96 Oximetry - General Appearance General appearance: well-developed, well-nourished EENT: ATNC Neck: no JVD Respiratory: Present: Clear to Ascultation Cardiology: regular, S1S2 Gastrointestinal: normal, tenderness (diffuse tenderness with deep palpation), no distended Integumentary: no rash Neurologic: alert and oriented x3 Musculoskeletal: other (no edema) Psychiatric: cooperative - Lab 03/22/17 03:47 03/23/17 08:22 Most recent lab results Calcium 8.2 mg/dL (8.4-10.2) L 03/23/17 08:22
[2017-03-23] MEDS ORDERED: MAXIPIME/NS 2 GM/100 ML 2 GM/100 ML BAG IV SCH (11:00)
--- NOTE | 2017-03-23 11:33 | Progress Note ---
Assessment and Plan Assessment and plan: Patient is 71-year-old woman with a history of end-stage renal disease on peritoneal dialysis, hypertension, osteoarthritis and CVA who presents with abdominal pain fever nausea vomiting. Symptoms have improved. CT abdomen and pelvis without contrast reported as moderate volume of abdominal pelvic ascites with pelvic peritoneal dialysis catheter in place, small amount of perihepatic pneumoperitoneum is present, which may be neurogenic or secondary to nonvisualized hollow viscus rupture, consider surgical consultation, suggested ball while taking Xarelto involving the jejunum may be secondary to ascites or primary GI pathology such as enteritis, small right pleural effusion, cardiomegaly cardiac artery disease, Dr. Amin discussed findings with Dr. Whipple. 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 Sykes, -DVT prophylaxis: Subcutaneous heparin, normal to low platelet counts continue to follow repeat CBC a.m. -Hyponatremia due to renal disease: nephrology to manage Full code Disposition: Continue inpatient care Abdominal ultrasound 03/22/2017 read as Adenomyomatosis of the gallbladder, no cholelithiasis, bilateral medical renal disease and no hydronephrosis, small liver with questionable cirrhosis Pending results: Peritoneal fluid culture still pending. ] GNR in 1/2 blood ctx bottles, consulted ID Disposition: Once cultures are back so that patient can go home on appropriate antibiotics History Interval history: Patient seen and examined. Follow up on current diagnosis/abdominal pain and swelling which have improved but still present. Overnight uneventful. No cp, sob , n/v or severe headaches. Imaging, old records, testing, labs, nursing notes reviewed. Daughter Darline is not at bedside today Hospitalist Physical - Physical exam Narrative exam: GEN: Thin frail BMI 19, NAD, AWAKE, ALERT, ORIENTATED x 3 HEENT: NCAT, PERRL, EOMI, OP CLEAR NECK: SUPPLE, NO THYROMEGALY, NO JVD, NO LAD CVS: RRR, NORMAL S1S2 LUNGS/CHEST: CTA B, NORMAL CHEST EXPANSION B, GOOD AIR ENTRY B ABD: SOFT, tender diffusely, GBS, NO REBOUND OR GUARDING, left quadrant peritoneal catheter EXT/SKIN: NO SIGNIFICANT EDEMA OR RASH MSK: FROM X 4 EXTREMITIES NEURO: CN 2-12 GROSSLY INTACT, NO NEW FOCAL DEFICITS PSY: CALM - Constitutional Vitals: Temp Pulse Resp BP Pulse Ox 99.4 F 100 H 18 162/94 96 03/23/17 10:00 03/23/17 10:00 03/23/17 10:00 03/23/17 10:00 03/23/17 10:00 Results - Labs CBC & Chem 7: 03/22/17 03:47 03/23/17 08:22 Labs: Laboratory Last Values WBC 5.1 K/mm3 (4.5-11.0) 03/22/17 03:47 RBC 3.87 M/mm3 (3.65-5.03) 03/22/17 03:47 Hgb 11.2 gm/dl (10.1-14.3) 03/22/17 03:47 Hct 33.7 % (30.3-42.9) 03/22/17 03:47 MCV 87 fl (79-97) 03/22/17 03:47 MCH 29 pg (28-32) 03/22/17 03:47 MCHC 33 % (30-34) 03/22/17 03:47 RDW 16.3 % (13.2-15.2) H 03/22/17 03:47 Plt Count 172 K/mm3 (140-440) 03/22/17 03:47 Lymph % (Auto) 9.2 % (13.4-35.0) L 03/20/17 19:56 [place] % (Auto) 7.3 % (0.0-7.3) 03/20/17 19:56 Eos % (Auto) 0.0 % (0.0-4.3) 03/20/17 19:56 Baso % (Auto) 0.2 % (0.0-1.8) 03/20/17 19:56 Lymph # 0.3 K/mm3 (1.2-5.4) L 03/20/17 19:56 [place] # 0.2 K/mm3 (0.0-0.8) 03/20/17 19:56 Eos # 0.0 K/mm3 (0.0-0.4) 03/20/17 19:56 Baso # 0.0 K/mm3 (0.0-0.1) 03/20/17 19:56 Add Manual Diff Complete 03/22/17 03:47 Total Counted 100 03/22/17 03:47 Seg Neutrophils % 83.3 % (40.0-70.0) H 03/20/17 19:56 Seg Neuts % (Manual) 63.0 % (40.0-70.0) 03/22/17 03:47 Band Neutrophils % 22.0 % 03/22/17 03:47 Lymphocytes % (Manual) 9.0 % (13.4-35.0) L 03/22/17 03:47 Reactive Lymphs % (Man) 0 % 03/22/17 03:47 Monocytes % (Manual) 6.0 % (0.0-7.3) 03/22/17 03:47 Eosinophils % (Manual) 0 % (0.0-4.3) 03/22/17 03:47 Basophils % (Manual) 0 % (0.0-1.8) 03/22/17 03:47 Metamyelocytes % 0 % 03/22/17 03:47 Myelocytes % 0 % 03/22/17 03:47 Promyelocytes % 0 % 03/22/17 03:47 Blast Cells % 0 % 03/22/17 03:47 Nucleated RBC % Not Reportable 03/22/17 03:47 Seg Neutrophils # 2.5 K/mm3 (1.8-7.7) 03/20/17 19:56 Seg Neutrophils # Man 3.2 K/mm3 (1.8-7.7) 03/22/17 03:47 Band Neutrophils # 1.1 K/mm3 03/22/17 03:47 Lymphocytes # (Manual) 0.5 K/mm3 (1.2-5.4) L 03/22/17 03:47 Abs React Lymphs (Man) 0.0 K/mm3 03/22/17 03:47 Monocytes # (Manual) 0.3 K/mm3 (0.0-0.8) 03/22/17 03:47 Eosinophils # (Manual) 0.0 K/mm3 (0.0-0.4) 03/22/17 03:47 Basophils # (Manual) 0.0 K/mm3 (0.0-0.1) 03/22/17 03:47 Metamyelocytes # 0.0 K/mm3 03/22/17 03:47 Myelocytes # 0.0 K/mm3 03/22/17 03:47 Promyelocytes # 0.0 K/mm3 03/22/17 03:47 Blast Cells # 0.0 K/mm3 03/22/17 03:47 WBC Morphology Not Reportable 03/22/17 03:47 Hypersegmented Neuts Not Reportable 03/22/17 03:47 Hyposegmented Neuts Not Reportable 03/22/17 03:47 Hypogranular Neuts Not Reportable 03/22/17 03:47 Smudge Cells Not Reportable 03/22/17 03:47 Toxic Granulation Not Reportable 03/22/17 03:47 Toxic Vacuolation Not Reportable 03/22/17 03:47 Dohle Bodies Not Reportable 03/22/17 03:47 Pelger-Huet Anomaly Not Reportable 03/22/17 03:47 Ry Rods Not Reportable 03/22/17 03:47 Platelet Estimate Consistent w auto 03/22/17 03:47 Clumped Platelets Not Reportable 03/22/17 03:47 Plt Clumps, EDTA Not Reportable 03/22/17 03:47 Large Platelets Not Reportable 03/22/17 03:47 Giant Platelets Not Reportable 03/22/17 03:47 Platelet Satelliting Not Reportable 03/22/17 03:47 Plt Morphology Comment Not Reportable 03/22/17 03:47 RBC Morphology Not Reportable 03/22/17 03:47 Dimorphic RBCs Not Reportable 03/22/17 03:47 Polychromasia Not Reportable 03/22/17 03:47 Hypochromasia 1+ 03/22/17 03:47 Poikilocytosis Not Reportable 03/22/17 03:47 Anisocytosis 1+ 03/22/17 03:47 Microcytosis Not Reportable 03/22/17 03:47 Macrocytosis Not Reportable 03/22/17 03:47 Spherocytes Not Reportable 03/22/17 03:47 Pappenheimer Bodies Not Reportable 03/22/17 03:47 Sickle Cells Not Reportable 03/22/17 03:47 Target Cells Not Reportable 03/22/17 03:47 Tear Drop Cells Not Reportable 03/22/17 03:47 Ovalocytes Not Reportable 03/22/17 03:47 Helmet Cells Not Reportable 03/22/17 03:47 Natarajan-[place] Bodies Not Reportable 03/22/17 03:47 [place] Rings Not Reportable 03/22/17 03:47 Lionel Cells Not Reportable 03/22/17 03:47 Bite Cells Not Reportable 03/22/17 03:47 Crenated Cell Not Reportable 03/22/17 03:47 Elliptocytes Not Reportable 03/22/17 03:47 Acanthocytes (Spur) Not Reportable 03/22/17 03:47 Rouleaux Not Reportable 03/22/17 03:47 Hemoglobin C Crystals Not Reportable 03/22/17 03:47 Schistocytes Not Reportable 03/22/17 03:47 Malaria parasites Not Reportable 03/22/17 03:47 Saud Bodies Not Reportable 03/22/17 03:47 Hem Pathologist Commnt No 03/22/17 03:47 PT 13.5 Sec. (12.2-14.9) 03/20/17 19:56 INR 0.98 (0.87-1.13) 03/20/17 19:56 VBG pH 7.450 (7.320-7.420) H 03/20/17 19:56 Sodium 132 mmol/L (137-145) L 03/23/17 08:22 Potassium 3.8 mmol/L (3.6-5.0) 03/23/17 08:22 Chloride 91.0 mmol/L (98-107) L 03/23/17 08:22 Carbon Dioxide 27 mmol/L (22-30) 03/23/17 08:22 Anion Gap 18 mmol/L 03/23/17 08:22 BUN 36 mg/dL (7-17) H 03/23/17 08:22 Creatinine 9.2 mg/dL (0.7-1.2) H 03/23/17 08:22 Estimated GFR 5 ml/min 03/23/17 08:22 BUN/Creatinine Ratio 3.91 % 03/23/17 08:22 Glucose 109 mg/dL (65-100) H 03/23/17 08:22 Lactic Acid 1.60 mmol/L (0.7-2.0) 03/20/17 22:43 Calcium 8.2 mg/dL (8.4-10.2) L 03/23/17 08:22 Total Bilirubin 0.20 mg/dL (0.1-1.2) 03/23/17 08:22 AST 23 units/L (5-40) 03/23/17 08:22 ALT 16 units/L (7-56) 03/23/17 08:22 Alkaline Phosphatase 58 units/L (35-129) 03/23/17 08:22 Total Protein 6.3 g/dL (6.3-8.2) 03/23/17 08:22 Albumin 1.2 g/dL (3.9-5) L 03/23/17 08:22 Albumin/Globulin Ratio 0.2 % 03/23/17 08:22 Lipase 28 units/L (13-60) 03/20/17 19:56 Urine Color Melissa (Yellow) 03/20/17 22:08 Urine Turbidity Slightly-cloudy (Clear) 03/20/17 22:08 Urine pH 7.0 (5.0-7.0) 03/20/17 22:08 Ur Specific [place] 1.025 (1.003-1.030) 03/20/17 22:08 Urine Protein >500 mg/dL (Negative) 03/20/17 22:08 Urine Glucose (UA) Neg mg/dL (Negative) 03/20/17 22:08 Urine Ketones Neg mg/dL (Negative) 03/20/17 22:08 Urine Blood Lg (Negative) 03/20/17 22:08 Urine Nitrite Neg (Negative) 03/20/17 22:08 Urine Bilirubin Neg (Negative) 03/20/17 22:08 Urine Urobilinogen < 2.0 mg/dL (<2.0) 03/20/17 22:08 Ur Leukocyte Esterase Neg (Negative) 03/20/17 22:08 Urine WBC (Auto) 181.0 /HPF (0.0-6.0) H 03/20/17 22:08 Urine RBC (Auto) > 182.0 /HPF (0.0-6.0) 03/20/17 22:08 U Epithel Cells (Auto) 3.0 /HPF (0-13.0) 03/20/17 22:08 Urine Mucus Few /HPF 03/20/17 22:08 Fluid Type Dialysate 03/22/17 06:50 Fluid Color Straw 03/22/17 06:50 Fluid Appearance Cloudy 03/22/17 06:50 Fluid WBC 60621 /mm3 03/22/17 06:50 Fluid RBC 1 /mm3 03/22/17 06:50 Fluid Diff Comment 03/22/17 06:50 Fluid Seg Neutrophils 4 % 03/22/17 06:50 Fluid Lymphocytes 9 % 03/22/17 06:50 Fluid Reactive Lymphs 0 % 03/22/17 06:50 Fluid Monocytes 5 % 03/22/17 06:50 Fluid Eosinophils 7 % 03/22/17 06:50 Fluid Basophils 0 % 03/22/17 06:50
[2017-03-23 11:56] LABS: Basophils Body Fluid 0 %; Eosinophils Body Fluid 0 %; Reactive Lymph Body Fluid 0 %
[2017-03-23] MEDS: MAXIPIME/NS 1 GM/100 ML 1 GM/100 ML BAG IV SCH (13:13)
--- NOTE | 2017-03-23 22:14 | Progress Note ---
Subjective Patient Reports: Positive: feels better, pain is less, flatus Narrative: feels much better abd soft less tenderness , tolerating well , will cont obs , on Vancomycin , Rocephin , Objective Vital Signs - 12hr 03/23/17 19:52 Temperature 99.4 F Pulse Rate 100 H Respiratory 18 Rate Blood Pressure 151/89 O2 Sat by Pulse 96 Oximetry - Labs 03/22/17 03:47 03/23/17 08:22 Diabetes panel 03/23/17 Range/Units 08:22 Sodium 132 L (137-145) mmol/L Potassium 3.8 (3.6-5.0) mmol/L Chloride 91.0 L (98-107) mmol/L Carbon Dioxide 27 (22-30) mmol/L BUN 36 H (7-17) mg/dL Creatinine 9.2 H (0.7-1.2) mg/dL Glucose 109 H (65-100) mg/dL Calcium 8.2 L (8.4-10.2) mg/dL AST 23 (5-40) units/L ALT 16 (7-56) units/L Alkaline Phosphatase 58 (35-129) units/L Total Protein 6.3 (6.3-8.2) g/dL Albumin 1.2 L (3.9-5) g/dL Calcium panel 03/23/17 Range/Units 08:22 Calcium 8.2 L (8.4-10.2) mg/dL Albumin 1.2 L (3.9-5) g/dL Pituitary panel 03/23/17 Range/Units 08:22 Sodium 132 L (137-145) mmol/L Potassium 3.8 (3.6-5.0) mmol/L Chloride 91.0 L (98-107) mmol/L Carbon Dioxide 27 (22-30) mmol/L BUN 36 H (7-17) mg/dL Creatinine 9.2 H (0.7-1.2) mg/dL Glucose 109 H (65-100) mg/dL Calcium 8.2 L (8.4-10.2) mg/dL Adrenal panel 03/23/17 Range/Units 08:22 Sodium 132 L (137-145) mmol/L Potassium 3.8 (3.6-5.0) mmol/L Chloride 91.0 L (98-107) mmol/L Carbon Dioxide 27 (22-30) mmol/L BUN 36 H (7-17) mg/dL Creatinine 9.2 H (0.7-1.2) mg/dL Glucose 109 H (65-100) mg/dL Calcium 8.2 L (8.4-10.2) mg/dL Total Bilirubin 0.20 (0.1-1.2) mg/dL AST 23 (5-40) units/L ALT 16 (7-56) units/L Alkaline Phosphatase 58 (35-129) units/L Total Protein 6.3 (6.3-8.2) g/dL Albumin 1.2 L (3.9-5) g/dL
--- NOTE | 2017-03-24 02:04 | Admit Criteria Form ---
Admission Criteria Documentation: RENAL FAILURE, CHRONIC Clinical Indications for Admission to Inpatient Care (Place 'X' for any and all applicable criteria): Admission is indicated for ANY ONE of the following (1)(2)(3)(4)(5): [ ]I. Inpatient admission required rather than observation care (Use Renal Failure, Chronic: Observation Care Criteria as appropriate) because of ANY ONE of the following: [ ]a) Volume overload or uremic symptoms (eg, clinically significant pulmonary edema, hypertension, pericarditis, acidosis) too severe for, or not responsive (eg, for over 24 hours) to emergency department or observation care dialysis or treatment regimen (11) [ ]b) Hemodynamic instability that is severe or persistent [ ]c) Respiratory distress that is severe or persistent (11) [ ]d) Clinically significant electrolyte abnormality that requires inpatient care (eg,hyperkalemia with severe ECG findings)[B] [ ]e) Supplement O2 or respiratory therapy for over 24hrs that is performable only in acute inpatient setting [ ]f) Continuous IV infusion of anticoagulation, platelet inhibitor, vasoactive, or Antiarrhythmic medication (15), [ ]g) Pulmonary artery catheter monitoring [ ]h) Temporary pacemaker placement [ ]i) Emergent pericardiocentesis [ ]j) Other condition, treatment or monitoring requiring inpatient admission [ ]II. Unexplained syncope [A] [ ]III. Recurrent seizures [X]IV. Severe infections not treatable in outpatient setting (eg, peritonitis)(9 ) [ ]V. Cardiac arrhythmias of immediate concern [ ]. Encephalopathy [ ]VII.Bleeding abnormalities (eg, platelet dysfunction) with active (eg, gastrointestinal) bleeding Extended stay beyond goal length of stay may be needed for (3)(4)(35)(36): [ ]a) Continuing uremic complications [ ]b) Comorbidities or complications The original [employer] content created by [employer] has been revised. The portions of the content which have been revised are identified through the use of italic text or in bold, and [email or web address] has neither reviewed nor approved the modified material. All other unmodified content is copyright [employer]. Please see references footnoted in the original [email or web address] edition 2016 Admission Criteria Met: Yes
[2017-03-24] MEDS: HEPARIN SUB-Q SCH ×3 (03:58→23:28)
[2017-03-24] MEDS: DIANEAL LOW CALCIUM W/1.5% DEXTROSE IP SCH ×2 (06:12)
--- NOTE | 2017-03-24 08:28 | Progress Note ---
Assessment and Plan Impression * End-stage renal disease on maintenance peritoneal dialysis * Catheter associated peritonitis * GNR bacteremia * Hypertension * Anemia secondary to ESRD * History of CVA * UTI Recommendations * Continue CAPD * Continue abx * Replete K * Repeat cell count - ordered yesterday, pending collection - discussed with RN * Await PD effluent culture * Recommend ID consultation * Adjust diet and meds for ESRD state * Avoid nephrotoxins Subjective Date of service: 03/24/17 Interval history: Patient reports abd pain improved. PD fluid is more clear. Objective - Vital Signs Vital signs: Vital Signs - 12hr 03/24/17 06:04 Temperature 99.7 F H Pulse Rate 102 H Respiratory 18 Rate Blood Pressure 151/97 O2 Sat by Pulse 95 Oximetry - General Appearance General appearance: well-developed, well-nourished EENT: ATNC Respiratory: Present: Clear to Ascultation Cardiology: regular, S1S2 Gastrointestinal: normal, tenderness (mild tenderness w/ palpation), no distended Neurologic: no focal deficit Musculoskeletal: other (no edema) Psychiatric: mood/affect appropriate, cooperative - Lab 03/24/17 08:45 03/24/17 08:45 Most recent lab results Calcium 8.2 mg/dL (8.4-10.2) L 03/23/17 08:22
[2017-03-24 09:19] LABS: Hematocrit 29.9 % (30.3-42.9); Hemoglobin 9.9 gm/dl (10.1-14.3); Mean Corpuscular HGB Conc 33 % (30-34); Mean Corpuscular Hemoglobin 29 pg (28-32); Mean Corpuscular Volume 87 fl (79-97); Platelet Count 146 K/mm3 (140-440); Red Blood Count 3.44 M/mm3 (3.65-5.03); Red Cell Distribution Width 15.8 % (13.2-15.2); White Blood Count 3.7 K/mm3 (4.5-11.0)
[2017-03-24 09:20] LABS: BUN/Creatinine Ratio 3.88; Potassium 3.2 mmol/L (3.6-5.0)
[2017-03-24] MEDS ORDERED: K-DUR PO ONE (10:00)
--- NOTE | 2017-03-24 12:04 | Progress Note ---
Assessment and Plan Assessment and plan: Catheter associated peritonitis. PD culture reveals gram-negative rods. Continue IV antibiotics. ID consultation. Repeat cell count ordered. ESRD. Continue peritoneal dialysis per nephrology. Avoid nephrotoxins. Sepsis. Etiology secondary to above, UTI and Gram-negative michelle bacteremia. Continue IV antibiotics and ID consultation. Escherichia coli bacteremia. As above. Continue cefepime. Hypertension. Continue antihypertensives medications. Anemia of CKD. Continue to monitor CBC and transfuse as needed. UTI. Continue antibiotics. History CVA. Severe protein calorie malnutrition. Nutrition following. Pneumoperitoneum. Surgery following. History Interval history: No new issues overnight. Hospitalist Physical - Constitutional Vitals: Temp Pulse Resp BP Pulse Ox 99.4 F 94 H 18 167/97 100 03/24/17 10:00 03/24/17 10:00 03/24/17 10:00 03/24/17 10:00 03/24/17 10:00 General appearance: Present: no acute distress, well-nourished - EENT Eyes: Present: PERRL, EOM intact ENT: hearing intact, clear oral mucosa, dentition normal - Neck Neck: Present: supple, normal ROM - Respiratory Respiratory effort: normal Respiratory: bilateral: CTA - Cardiovascular Rhythm: regular Heart Sounds: Present: S1 & S2. Absent: gallop, rub - Extremities Extremities: no ischemia, No edema, Full ROM - Abdominal General gastrointestinal: soft, tender, non-distended, normal bowel sounds Localized gastrointestinal: tender: epigastric periumbilical (mild) - Integumentary Integumentary: Present: clear, warm, dry - Neurologic Neurologic: CNII-XII intact, moves all extremities Results - Labs CBC & Chem 7: 03/24/17 08:45 03/24/17 08:45 Labs: Laboratory Last Values WBC 3.7 K/mm3 (4.5-11.0) L 03/24/17 08:45 RBC 3.44 M/mm3 (3.65-5.03) L 03/24/17 08:45 Hgb 9.9 gm/dl (10.1-14.3) L 03/24/17 08:45 Hct 29.9 % (30.3-42.9) L 03/24/17 08:45 MCV 87 fl (79-97) 03/24/17 08:45 MCH 29 pg (28-32) 03/24/17 08:45 MCHC 33 % (30-34) 03/24/17 08:45 RDW 15.8 % (13.2-15.2) H 03/24/17 08:45 Plt Count 146 K/mm3 (140-440) 03/24/17 08:45 Lymph % (Auto) 9.2 % (13.4-35.0) L 03/20/17 19:56 [place] % (Auto) 7.3 % (0.0-7.3) 03/20/17 19:56 Eos % (Auto) 0.0 % (0.0-4.3) 03/20/17 19:56 Baso % (Auto) 0.2 % (0.0-1.8) 03/20/17 19:56 Lymph # 0.3 K/mm3 (1.2-5.4) L 03/20/17 19:56 [place] # 0.2 K/mm3 (0.0-0.8) 03/20/17 19:56 Eos # 0.0 K/mm3 (0.0-0.4) 03/20/17 19:56 Baso # 0.0 K/mm3 (0.0-0.1) 03/20/17 19:56 Add Manual Diff Complete 03/22/17 03:47 Total Counted 100 03/22/17 03:47 Seg Neutrophils % 83.3 % (40.0-70.0) H 03/20/17 19:56 Seg Neuts % (Manual) 63.0 % (40.0-70.0) 03/22/17 03:47 Band Neutrophils % 22.0 % 03/22/17 03:47 Lymphocytes % (Manual) 9.0 % (13.4-35.0) L 03/22/17 03:47 Reactive Lymphs % (Man) 0 % 03/22/17 03:47 Monocytes % (Manual) 6.0 % (0.0-7.3) 03/22/17 03:47 Eosinophils % (Manual) 0 % (0.0-4.3) 03/22/17 03:47 Basophils % (Manual) 0 % (0.0-1.8) 03/22/17 03:47 Metamyelocytes % 0 % 03/22/17 03:47 Myelocytes % 0 % 03/22/17 03:47 Promyelocytes % 0 % 03/22/17 03:47 Blast Cells % 0 % 03/22/17 03:47 Nucleated RBC % Not Reportable 03/22/17 03:47 Seg Neutrophils # 2.5 K/mm3 (1.8-7.7) 03/20/17 19:56 Seg Neutrophils # Man 3.2 K/mm3 (1.8-7.7) 03/22/17 03:47 Band Neutrophils # 1.1 K/mm3 03/22/17 03:47 Lymphocytes # (Manual) 0.5 K/mm3 (1.2-5.4) L 03/22/17 03:47 Abs React Lymphs (Man) 0.0 K/mm3 03/22/17 03:47 Monocytes # (Manual) 0.3 K/mm3 (0.0-0.8) 03/22/17 03:47 Eosinophils # (Manual) 0.0 K/mm3 (0.0-0.4) 03/22/17 03:47 Basophils # (Manual) 0.0 K/mm3 (0.0-0.1) 03/22/17 03:47 Metamyelocytes # 0.0 K/mm3 03/22/17 03:47 Myelocytes # 0.0 K/mm3 03/22/17 03:47 Promyelocytes # 0.0 K/mm3 03/22/17 03:47 Blast Cells # 0.0 K/mm3 03/22/17 03:47 WBC Morphology Not Reportable 03/22/17 03:47 Hypersegmented Neuts Not Reportable 03/22/17 03:47 Hyposegmented Neuts Not Reportable 03/22/17 03:47 Hypogranular Neuts Not Reportable 03/22/17 03:47 Smudge Cells Not Reportable 03/22/17 03:47 Toxic Granulation Not Reportable 03/22/17 03:47 Toxic Vacuolation Not Reportable 03/22/17 03:47 Dohle Bodies Not Reportable 03/22/17 03:47 Pelger-Huet Anomaly Not Reportable 03/22/17 03:47 Ry Rods Not Reportable 03/22/17 03:47 Platelet Estimate Consistent w auto 03/22/17 03:47 Clumped Platelets Not Reportable 03/22/17 03:47 Plt Clumps, EDTA Not Reportable 03/22/17 03:47 Large Platelets Not Reportable 03/22/17 03:47 Giant Platelets Not Reportable 03/22/17 03:47 Platelet Satelliting Not Reportable 03/22/17 03:47 Plt Morphology Comment Not Reportable 03/22/17 03:47 RBC Morphology Not Reportable 03/22/17 03:47 Dimorphic RBCs Not Reportable 03/22/17 03:47 Polychromasia Not Reportable 03/22/17 03:47 Hypochromasia 1+ 03/22/17 03:47 Poikilocytosis Not Reportable 03/22/17 03:47 Anisocytosis 1+ 03/22/17 03:47 Microcytosis Not Reportable 03/22/17 03:47 Macrocytosis Not Reportable 03/22/17 03:47 Spherocytes Not Reportable 03/22/17 03:47 Pappenheimer Bodies Not Reportable 03/22/17 03:47 Sickle Cells Not Reportable 03/22/17 03:47 Target Cells Not Reportable 03/22/17 03:47 Tear Drop Cells Not Reportable 03/22/17 03:47 Ovalocytes Not Reportable 03/22/17 03:47 Helmet Cells Not Reportable 03/22/17 03:47 Natarajan-[place] Bodies Not Reportable 03/22/17 03:47 [place] Rings Not Reportable 03/22/17 03:47 Lionel Cells Not Reportable 03/22/17 03:47 Bite Cells Not Reportable 03/22/17 03:47 Crenated Cell Not Reportable 03/22/17 03:47 Elliptocytes Not Reportable 03/22/17 03:47 Acanthocytes (Spur) Not Reportable 03/22/17 03:47 Rouleaux Not Reportable 03/22/17 03:47 Hemoglobin C Crystals Not Reportable 03/22/17 03:47 Schistocytes Not Reportable 03/22/17 03:47 Malaria parasites Not Reportable 03/22/17 03:47 Saud Bodies Not Reportable 03/22/17 03:47 Hem Pathologist Commnt No 03/22/17 03:47 PT 13.5 Sec. (12.2-14.9) 03/20/17 19:56 INR 0.98 (0.87-1.13) 03/20/17 19:56 VBG pH 7.450 (7.320-7.420) H 03/20/17 19:56 Sodium 131 mmol/L (137-145) L 03/24/17 08:45 Potassium 3.2 mmol/L (3.6-5.0) L 03/24/17 08:45 Chloride 90.0 mmol/L (98-107) L 03/24/17 08:45 Carbon Dioxide 30 mmol/L (22-30) 03/24/17 08:45 Anion Gap 14 mmol/L 03/24/17 08:45 BUN 33 mg/dL (7-17) H 03/24/17 08:45 Creatinine 8.5 mg/dL (0.7-1.2) H 03/24/17 08:45 Estimated GFR 6 ml/min 03/24/17 08:45 BUN/Creatinine Ratio 3.88 % 03/24/17 08:45 Glucose 99 mg/dL (65-100) 03/24/17 08:45 Lactic Acid 1.60 mmol/L (0.7-2.0) 03/20/17 22:43 Calcium 8.0 mg/dL (8.4-10.2) L 03/24/17 08:45 Total Bilirubin 0.20 mg/dL (0.1-1.2) 03/23/17 08:22 AST 23 units/L (5-40) 03/23/17 08:22 ALT 16 units/L (7-56) 03/23/17 08:22 Alkaline Phosphatase 58 units/L (35-129) 03/23/17 08:22 Total Protein 6.3 g/dL (6.3-8.2) 03/23/17 08:22 Albumin 1.2 g/dL (3.9-5) L 03/23/17 08:22 Albumin/Globulin Ratio 0.2 % 03/23/17 08:22 Lipase 28 units/L (13-60) 03/20/17 19:56 Urine Color [place] (Yellow) 03/20/17 22:08 Urine Turbidity Slightly-cloudy (Clear) 03/20/17 22:08 Urine pH 7.0 (5.0-7.0) 03/20/17 22:08 Ur Specific [place] 1.025 (1.003-1.030) 03/20/17 22:08 Urine Protein >500 mg/dL (Negative) 03/20/17 22:08 Urine Glucose (UA) Neg mg/dL (Negative) 03/20/17 22:08 Urine Ketones Neg mg/dL (Negative) 03/20/17 22:08 Urine Blood Lg (Negative) 03/20/17 22:08 Urine Nitrite Neg (Negative) 03/20/17 22:08 Urine Bilirubin Neg (Negative) 03/20/17 22:08 Urine Urobilinogen < 2.0 mg/dL (<2.0) 03/20/17 22:08 Ur Leukocyte Esterase Neg (Negative) 03/20/17 22:08 Urine WBC (Auto) 181.0 /HPF (0.0-6.0) H 03/20/17 22:08 Urine RBC (Auto) > 182.0 /HPF (0.0-6.0) 03/20/17 22:08 U Epithel Cells (Auto) 3.0 /HPF (0-13.0) 03/20/17 22:08 Urine Mucus Few /HPF 03/20/17 22:08 Fluid Type Dialysate 03/22/17 06:50 Fluid Color Straw 03/22/17 06:50 Fluid Appearance Cloudy 03/22/17 06:50 Fluid WBC 92825 /mm3 03/22/17 06:50 Fluid RBC 1 /mm3 03/22/17 06:50 Fluid Diff Comment 03/22/17 06:50 Fluid Seg Neutrophils 91.0 % 03/22/17 06:50 Fluid Lymphocytes 3.0 % 03/22/17 06:50 Fluid Reactive Lymphs 0 % 03/22/17 06:50 Fluid Monocytes 6.0 % 03/22/17 06:50 Fluid Eosinophils 0 % 03/22/17 06:50 Fluid Basophils 0 % 03/22/17 06:50
[2017-03-24] MEDS: MAXIPIME/NS 1 GM/100 ML 1 GM/100 ML BAG IV SCH (13:25)
[2017-03-24] MEDS: DIANEAL LOW CALCIUM W/2.5% DEXTROSE IP SCH ×2 (13:29→22:35)
--- NOTE | 2017-03-24 17:13 | Progress Note ---
Subjective Patient Reports: Positive: feels better, flatus, bowel movement, afebrile Narrative: marked improvement clinically , taking dinner , no aches no pains ambulatory on a chair .nothing to add surgically , will follow , Objective Vital Signs - 12hr 03/24/17 03/24/17 06:04 10:00 Temperature 99.7 F H 99.4 F Pulse Rate 102 H 99 H Respiratory 18 18 Rate Blood Pressure 151/97 167/97 O2 Sat by Pulse 95 100 Oximetry - Labs 03/24/17 08:45 03/24/17 08:45 Diabetes panel 03/24/17 Range/Units 08:45 Sodium 131 L (137-145) mmol/L Potassium 3.2 L (3.6-5.0) mmol/L Chloride 90.0 L (98-107) mmol/L Carbon Dioxide 30 (22-30) mmol/L BUN 33 H (7-17) mg/dL Creatinine 8.5 H (0.7-1.2) mg/dL Glucose 99 (65-100) mg/dL Calcium 8.0 L (8.4-10.2) mg/dL Calcium panel 03/24/17 Range/Units 08:45 Calcium 8.0 L (8.4-10.2) mg/dL Pituitary panel 03/24/17 Range/Units 08:45 Sodium 131 L (137-145) mmol/L Potassium 3.2 L (3.6-5.0) mmol/L Chloride 90.0 L (98-107) mmol/L Carbon Dioxide 30 (22-30) mmol/L BUN 33 H (7-17) mg/dL Creatinine 8.5 H (0.7-1.2) mg/dL Glucose 99 (65-100) mg/dL Calcium 8.0 L (8.4-10.2) mg/dL Adrenal panel 03/24/17 Range/Units 08:45 Sodium 131 L (137-145) mmol/L Potassium 3.2 L (3.6-5.0) mmol/L Chloride 90.0 L (98-107) mmol/L Carbon Dioxide 30 (22-30) mmol/L BUN 33 H (7-17) mg/dL Creatinine 8.5 H (0.7-1.2) mg/dL Glucose 99 (65-100) mg/dL Calcium 8.0 L (8.4-10.2) mg/dL
[2017-03-24] MEDS: TYLENOL PO PRN (17:17)
--- NOTE | 2017-03-24 17:59 | Consultation ---
History of Present Illness - Reason for Consult Consult date: 03/24/17 Gram negative Bacteremia Requesting physician: SIMONE CORADO - History of Present Illness Ms. Peacock is a 71-year-old woman with ESRD on peritoneal dialysis and hypertension who is admitted with abdominal pain and fever. CT abdomen showed the presence of ascites and possible enteritis. Cultures of blood and peritoneal fluid were obtained. Blood culture is positive for E. coli and an unidentified Gram negative juan r has been isolated from the peritoneal fluid. She is presently prescribed Cefepime. She says the abdominal pain is "much better". ID consultation is requested for further treatment recommendations. Past History Past Medical History: ESRD, hypertension Past Surgical History: Other (history of PD catheter placement) Social history: no significant social history Family history: no significant family history Medications and Allergies Allergies Allergy/AdvReac Type Severity Reaction Status Date / Time Sulfa (Sulfonamide AdvReac Itching Verified 10/17/13 10:15 Antibiotics) Home Medications Medication Instructions Recorded Confirmed Last Taken Type Losartan [Cozaar] 100 mg PO QDAY 10/17/13 03/24/17 03/19/17 10:00 History 100mg Carvedilol [Coreg] 12.5 mg PO BID 11/25/13 03/24/17 03/19/17 10:00 History 12.5mg Bisacodyl [Dulcolax] 5 mg PO QDAY 03/20/17 03/24/17 03/19/17 10:00 History 5mg Cinacalcet [Sensipar] 30 mg PO 3XW 03/20/17 03/24/17 03/18/17 10:00 History 30mg Iron,Carbonyl [Feosol] 65 mg PO QDAY 03/20/17 03/24/17 03/19/17 10:00 History 65mg NIFEdipine [Nifedipine ER] 60 mg PO QDAY 03/20/17 03/24/17 03/19/17 10:00 History 60mg Potassium Chloride [Klor-Con] 20 meq PO QDAY 03/20/17 03/24/17 03/19/17 10:00 History 20meq Sevelamer Carbonate [Renvela] 800 mg PO TIDWM 03/20/17 03/24/17 03/19/17 14:00 History 800mg Simvastatin [Zocor TAB] 40 mg PO QHS 03/20/17 03/24/17 03/19/17 10:00 History 40mg Spironolactone [Aldactone] 25 mg PO BID 03/20/17 03/24/17 03/19/17 10:00 History 25mg Vit B Comp&C/Folic Acid/Vit D3 1 each PO QDAY 03/20/17 03/24/17 03/19/17 10:00 History [Dialyvite 800 Plus D Wafer] 1tab Active Meds: Active Medications Acetaminophen (Tylenol) 650 mg PO Q4H PRN PRN Reason: Pain MILD(1-3)/Fever >100.5/AGUILAR Last Admin: 03/24/17 17:17 Dose: 650 mg Bisacodyl (Dulcolax) 10 mg NM QDAY PRN PRN Reason: Constipation unrelieved by MOM Heparin Sodium (Porcine) (Heparin) 5,000 unit SUB-Q Q12H [facility] Last Admin: 03/24/17 13:26 Dose: 5,000 unit Cefepime HCl (Maxipime/Ns 1 Gm/100 Ml) 1 gm in 100 mls @ 200 mls/hr IV Q24H [facility] Last Admin: 03/24/17 13:25 Dose: 200 mls/hr Ondansetron HCl (Zofran) 4 mg IV Q8H PRN PRN Reason: N/V unrelieved by Reglan Oxycodone/Acetaminophen (Percocet 5/325) 1 tab PO Q6H PRN PRN Reason: Pain, Moderate (4-6) Last Admin: 03/21/17 02:10 Dose: 1 tab Peritoneal Dialysis Solution (Dianeal Low Calcium W/2.5% Dextrose) 2,000 ml IP QID [facility] Last Admin: 03/24/17 13:29 Dose: 2,000 ml Review of Systems All systems: negative Constitutional: fever (resolved), no chills, no weakness, no poor appetite Cardiovascular: no chest pain, no palpitations Respiratory: no cough Gastrointestinal: abdominal pain (resolved), other (turbid fluid per PD cath, now clearer), no nausea, no vomiting, no diarrhea, no early satiety Integumentary: no rash, no pruritis Physical Examination - Constitutional Vitals: Vital Signs Temp Pulse Resp BP Pulse Ox 99.4 F 99 H 18 167/97 100 03/24/17 10:00 03/24/17 10:00 03/24/17 10:00 03/24/17 10:00 03/24/17 10:00 Temperature -Last 24 Hours Temperature 99.4 F Temperature 99.7 F Temperature 99.4 F General appearance: Present: no acute distress, other (eating dinner) - EENT Eyes: Absent: scleral icterus - Respiratory Respiratory: bilateral: CTA - Cardiovascular Rhythm: regular Heart Sounds: Present: S1 & S2 - Extremities Extremities: No edema - Abdominal General gastrointestinal: Present: soft, non-tender, non-distended, other (PD catheter without surrounding inflammation) - Integumentary Integumentary: Absent: jaundice, rash - Psychiatric Psychiatric: appropriate mood/affect Results - Labs CBC & Chem 7: 03/24/17 08:45 03/24/17 08:45 Labs: Abnormal lab results 03/24/17 03/24/17 Range/Units 08:45 08:45 WBC 3.7 L (4.5-11.0) K/mm3 RBC 3.44 L (3.65-5.03) M/mm3 Hgb 9.9 L (10.1-14.3) gm/dl Hct 29.9 L (30.3-42.9) % RDW 15.8 H (13.2-15.2) % Sodium 131 L (137-145) mmol/L Potassium 3.2 L (3.6-5.0) mmol/L Chloride 90.0 L (98-107) mmol/L BUN 33 H (7-17) mg/dL Creatinine 8.5 H (0.7-1.2) mg/dL Calcium 8.0 L (8.4-10.2) mg/dL Microbiology 03/20/17 20:50 Peripheral/Venous Blood Culture - Preliminary Escherichia Coli 03/20/17 19:56 Peripheral/Venous Blood Culture - Preliminary NO GROWTH AFTER 72 HOURS 03/22/17 06:50 Peritioneal Dialysate Peritoneal Dialysate Culture - Preliminary Gram Negative Juan R 03/21/17 Unknown Urine,Clean Catch Urine Culture - Final 03/20/17 Unknown Urine,Clean Catch Urine Culture - Final NO GROWTH AFTER 48 HOURS - Imaging and Cardiology CT scan - abdomen: report reviewed Assessment and Plan - Patient Problems (1) Bacteremia due to Escherichia coli Current Visit: Yes Status: Acute Plan to address problem: 1. Continue Cefepime pending identification of GNR from peritoneal fluid. 2. I expect that patient will have Levaquin as an oral option would great oral bioavailability. Will likely transition to this once final micro data are back. (2) Peritonitis associated with peritoneal dialysis Current Visit: Yes Status: Acute Qualifiers: Encounter type: E Plan to address problem: 1. Per above. Anticipate Levaquin 250mg PO q48h to complete a 14-day course ( stop date April 04, 2017). Await further micro data. (3) ESRD (end stage renal disease) Current Visit: Yes Status: Acute Plan to address problem: Renally adjusting antibiotics.
[2017-03-25] MEDS: DIANEAL LOW CALCIUM W/2.5% DEXTROSE IP SCH ×4 (04:15→17:34)
[2017-03-25 05:04] LABS: Hematocrit 29.5 % (30.3-42.9); Hemoglobin 9.8 gm/dl (10.1-14.3); Mean Corpuscular HGB Conc 33 % (30-34); Mean Corpuscular Hemoglobin 29 pg (28-32); Mean Corpuscular Volume 87 fl (79-97); Platelet Count 120 K/mm3 (140-440); Red Blood Count 3.41 M/mm3 (3.65-5.03); White Blood Count 3.7 K/mm3 (4.5-11.0)
[2017-03-25 05:26] LABS: BUN/Creatinine Ratio 4.11; Calcium 8.3 mg/dL (8.4-10.2); Chloride 93.6 mmol/L (98-107); Potassium 3.6 mmol/L (3.6-5.0)
[2017-03-25 06:01] LABS: Anisocytosis 1+; Basophils % (Manual) 0 % (0.0-1.8); Blastocytes % (Manual) 0 %; Diff Status Complete; Platelet Estimate Consistent w Auto
--- NOTE | 2017-03-25 09:31 | Progress Note ---
Assessment and Plan Impression * End-stage renal disease on maintenance peritoneal dialysis * Catheter associated peritonitis - PD effluent WBC 22k-->191 * Ecoli bacteremia * Hypertension * Anemia secondary to ESRD * History of CVA * UTI Recommendations * Continue CAPD - 2.5% dextrose * Abx per ID * Await PD culture ID/sensitivities - GNR * Resume Losartan 100mg daily * Adjust diet and meds for ESRD state * Avoid nephrotoxins Subjective Date of service: 03/25/17 Interval history: Patient reports that she is feeling better. Denies abdominal pain. Objective - Vital Signs Vital signs: Vital Signs - 12hr 03/24/17 03/25/17 22:00 07:43 Temperature 98.8 F 98.0 F Pulse Rate 95 H 82 Respiratory 18 16 Rate Blood Pressure 145/94 173/92 O2 Sat by Pulse 98 98 Oximetry - General Appearance General appearance: well-developed, well-nourished EENT: ATNC Respiratory: Present: Clear to Ascultation Cardiology: regular, S1S2 Gastrointestinal: normal, no tenderness, no distended Integumentary: no rash Neurologic: alert and oriented x3 Musculoskeletal: other (no edema) Psychiatric: cooperative - Lab 03/25/17 04:17 03/25/17 04:17 Most recent lab results Calcium 8.3 mg/dL (8.4-10.2) L 03/25/17 04:17
[2017-03-25] MEDS ORDERED: COZAAR PO SCH (10:30)
--- NOTE | 2017-03-25 11:07 | Discharge Summary ---
Providers - Providers Date of Admission: 03/20/17 23:51 Date of discharge: 03/25/17 Attending physician: RAYNA LEWIS 03/21/17 11:20 Consult to Dietitian/Nutrition [CONS] Routine Physician Instructions: Reason For Exam: Reason for Consult: Malnutrition 03/23/17 11:26 Consult to Physician [CONS] Routine Consulting Provider: TRISTIN TORRES Reason For Exam: GN bacteremia Place consult to:: Brian MACKENZIE Notified:: Dr. Torres Phone number called:: Was contact made?: Yes Time called:: 13:30 Comment:: Message left on voice mail Primary care physician: TONYA VILLARREAL Hospitalization Reason for admission: abd pain, fever Condition: Stable Hospital course: Ms. Peacock is a 71-year-old woman with ESRD on peritoneal dialysis and hypertension who is admitted with abdominal pain and fever. CT abdomen showed the presence of ascites and possible enteritis. Cultures of blood and peritoneal fluid were obtained. Blood culture and peritoneal fluid was positive for E. coli. Patient was treated with IV antibiotics with cefepime. Patient was seen by infectious disease in consultation. The sensitivities revealed that both the blood culture and peritoneal fluid were sensitive to Levaquin. Patient will be discharged on Levaquin 250 mg by mouth every 48 hours to complete a 14 day course. Patient is to follow-up with ID and nephrology as an outpatient. Dedicated discharge time 32 minutes. Disposition: TO HOME OR SELFCARE Time spent for discharge: 32 - Discharge Diagnoses (1) Sepsis Status: Acute Qualifiers: Sepsis type: S (2) Bacteremia due to Escherichia coli Status: Acute (3) ESRD (end stage renal disease) Status: Acute (4) Fever Status: Acute Qualifiers: Fever type: unspecified Encounter type: E Qualified Code(s): R50.9 - Fever, unspecified (5) Generalized abdominal pain Status: Acute (6) Peritonitis associated with peritoneal dialysis Status: Acute Qualifiers: Encounter type: E (7) Acute kidney injury Status: Acute (8) Acute on chronic renal failure Status: Acute Qualifiers: Acute renal failure type: A Chronic kidney disease stage: C Core Measure Documentation - Palliative Care Palliative Care/ Comfort Measures: Not Applicable - Core Measures Any of the following diagnoses?: none Exam - Constitutional Vitals: Temp Pulse Resp BP Pulse Ox 98.0 F 66 16 173/92 98 03/25/17 07:43 03/25/17 10:00 03/25/17 07:43 03/25/17 07:43 03/25/17 07:43 General appearance: Present: no acute distress, well-nourished - EENT Eyes: Present: PERRL ENT: hearing intact, clear oral mucosa - Neck Neck: Present: supple, normal ROM - Respiratory Respiratory effort: normal Respiratory: bilateral: CTA - Cardiovascular Heart Sounds: Present: S1 & S2. Absent: rub, click - Extremities Extremities: pulses symmetrical, No edema Peripheral Pulses: within normal limits - Abdominal General gastrointestinal: Present: soft, non-tender, non-distended, normal bowel sounds Female genitourinary: Present: normal - Integumentary Integumentary: Present: clear, warm, dry - Musculoskeletal Musculoskeletal: gait normal, strength equal bilaterally - Psychiatric Psychiatric: appropriate mood/affect, intact judgment & insight - Neurologic Neurologic: CNII-XII intact, moves all extremities Plan Activity: no restrictions Weight Bearing Status: Full Weight Bearing Diet: renal Follow up with: PRIMARY CAREMD [Referring] - 3-5 Days TRISTIN TORRES MD [Staff Physician] - 7 Days JAMISON ALDRICH MD [Staff Physician] - 7 Days Prescriptions: Levofloxacin [Levaquin] 250 mg PO Q48H 14 Days
[2017-03-25] MEDS ORDERED: LEVAQUIN PO ONE (11:35)
--- NOTE | 2017-03-25 11:36 | Progress Note ---
Assessment and Plan - Patient Problems (1) Bacteremia due to Escherichia coli Current Visit: Yes Status: Acute Plan to address problem: 1. Transitioning to renally-adjusted Levaquin to complete a 14-day course ( stop date April 04, 2017). 2. First dose Levaquin 500mg here. Next dose on 03/27/17 at Levaquin 250mg q48h. 3. Discharge okay from ID standpoint. (2) Peritonitis associated with peritoneal dialysis Current Visit: Yes Status: Acute Qualifiers: Encounter type: E Plan to address problem: Treatment per Levaquin course. (3) ESRD (end stage renal disease) Current Visit: Yes Status: Acute Plan to address problem: Continue PD. Subjective Date of service: 03/25/17 Principal diagnosis: Peritonitis/ Bacteremia Interval history: No new complaints. Objective - Constitutional Vitals: Vital Signs Temp Pulse Resp BP Pulse Ox 98.0 F 66 16 173/92 98 03/25/17 07:43 03/25/17 10:00 03/25/17 07:43 03/25/17 07:43 03/25/17 07:43 Temperature -Last 24 Hours Temperature 98.0 F Temperature 98.8 F General appearance: Present: no acute distress - Respiratory Respiratory effort: normal Respiratory: bilateral: CTA - Cardiovascular Rhythm: regular Extremities: No edema - Gastrointestinal General gastrointestinal: Present: soft, non-tender, non-distended, other (PD catheter, no inflammation) - Integumentary Integumentary: clear, no jaundice - Neurologic Neurologic: no focal deficits - Psychiatric Psychiatric: appropriate mood/affect - Labs CBC & Chem 7: 03/25/17 04:17 03/25/17 04:17 Labs: Abnormal lab results 03/25/17 03/25/17 Range/Units 04:17 04:17 WBC 3.7 L (4.5-11.0) K/mm3 RBC 3.41 L (3.65-5.03) M/mm3 Hgb 9.8 L (10.1-14.3) gm/dl Hct 29.5 L (30.3-42.9) % RDW 16.0 H (13.2-15.2) % Plt Count 120 L (140-440) K/mm3 Lymphocytes % (Manual) 11.0 L (13.4-35.0) % Monocytes % (Manual) 19.0 H (0.0-7.3) % Eosinophils % (Manual) 5.0 H (0.0-4.3) % Lymphocytes # (Manual) 0.4 L (1.2-5.4) K/mm3 Sodium 134 L (137-145) mmol/L Chloride 93.6 L (98-107) mmol/L Carbon Dioxide 32 H (22-30) mmol/L BUN 35 H (7-17) mg/dL Creatinine 8.5 H (0.7-1.2) mg/dL Calcium 8.3 L (8.4-10.2) mg/dL Microbiology 03/20/17 19:56 Peripheral/Venous Blood Culture - Preliminary NO GROWTH AFTER 4 DAYS 03/22/17 06:50 Peritioneal Dialysate Peritoneal Dialysate Culture - Preliminary Escherichia Coli 03/20/17 20:50 Peripheral/Venous Blood Culture - Preliminary Escherichia Coli 03/21/17 Unknown Urine,Clean Catch Urine Culture - Final 03/20/17 Unknown Urine,Clean Catch Urine Culture - Final NO GROWTH AFTER 48 HOURS
[2017-03-25] MEDS: HEPARIN SUB-Q SCH (11:39)
[2017-03-25 11:48] VITALS: BP 177/93
== END 2017-03-25 20:30 | disposition home or self-care (01) | DRG 919 ==
LOC: ED 19:31 → CC2 23:51
PROVIDERS: ADMIT Internal Medicine; ATTEND Hospitalist
DX: T85.71XA Infection and inflammatory reaction due to peritoneal dialysis catheter, initial encounter (principal); A41.51 Sepsis due to Escherichia coli [E. coli]; N18.6 End stage renal disease; E43 Unspecified severe protein-calorie malnutrition; K65.9 Peritonitis, unspecified; A41.50 Gram-negative sepsis, unspecified; N39.0 Urinary tract infection, site not specified; I12.0 Hypertensive chronic kidney disease with stage 5 chronic kidney disease or end stage renal disease; E87.1 Hypo-osmolality and hyponatremia; N17.9 Acute kidney failure, unspecified; M17.0 Bilateral primary osteoarthritis of knee; Y84.8 Other medical procedures as the cause of abnormal reaction of the patient, or of later complication, without mention of misadventure at the time of the procedure; D63.1 Anemia in chronic kidney disease; N18.9 Chronic kidney disease, unspecified; Z86.73 Personal history of transient ischemic attack (TIA), and cerebral infarction without residual deficits; Z90.11 Acquired absence of right breast and nipple; Z98.51 Tubal ligation status; Z82.49 Family history of ischemic heart disease and other diseases of the circulatory system; Z88.2 Allergy status to sulfonamides; Z99.2 Dependence on renal dialysis; Z68.20 Body mass index [BMI] 20.0-20.9, adult; Y92.89 Other specified places as the place of occurrence of the external cause
CPT/HCPCS: 36415; 71010; 74176; 76700; 80048; 80053; 81001; 82140; 82805; 83690; 85007; 85025; 85027; 85610; 87040; 87076; 87086; 87116; 87186; 89051; 93005; 93010; J0692; J0696; J1644; J1650; J2405; J3370